=== PATIENT | female | born 1945 | race Caucasian/White ===

== ENCOUNTER 2024-03-09 09:51 | Inpatient (IN) ==
--- NOTE | 2024-03-09 10:12 | Emergency Department Note ---
Impression & Plan Complaint of melena ADMIT ED Provider Note HPI: History obtained from patient. The patient is a 78-year-old female with history of cirrhosis, who presents the emergency department with a chief complaint of melena. Patient states that she had esophageal variceal banding performed on 02/27 with [facility] at the [facility], patient states she seemed to be recovering well until last night when she had some nausea and then had one "black colored" bowel movement. Patient states she probably had 2-3 more overnight into this morning and therefore she came to the ER to be assessed. On arrival here to the ED the patient is hemodynamically stable, she otherwise appears to be in no acute distress. Patient denies any hematemesis. ROS: - Per HPI Differential Diagnosis: Bleeding esophageal varices, upper GI bleed/peptic ulcer disease/gastritis, lower GI bleed, hemorrhoids, colonic mass/tumor, amongst other potential pathologies. *Outpatient medications and allergy history reviewed. PE: General: Alert HEENT: Normocephalic, trachea midline Eyes: Extraocular eye movement is intact, no scleral erythema Pulmonary: Clear to auscultation bilaterally, no wheezing Cardio: Regular rate and rhythm GI: Abdomen is soft to palpation : No suprapubic tenderness MSK: No evidence of trauma or malformation of the extremities, no edema Skin: No evidence of rash Neuro: Alert, no focal deficits Psychiatric: Cooperative INDEPENDENT INTERPRETATIONS: engine monitor: (As interpreted by myself): - An order was placed for continuous cardiac monitoring - Patient was noted to be in sinus rhythm with a rate of 62 EKG: (As interpreted by myself): Rate: 70 Rhythm: Normal sinus rhythm Intervals: QTc 609 ms, otherwise within normal limits ST changes: No ST elevation Time: 1014 Interventions provided in ED: -IV Protonix bolus and drip, IV octreotide Medical Decision Making: IV was established and lab work obtained, patient was placed on secured entrance monitor. Lab work shows no leukocytosis, hemoglobin is stable at 11.4, platelet count is slightly reduced at 126, CMP does not show any evidence of any critical findings, BUN is mildly elevated at 25, creatinine is within normal limits, urinalysis shows 2+ leukocyte esterase without any other obvious evidence of infection. Will send for culture. Patient denies any recent dysuria. CT imaging of the abdomen and pelvis was obtained with IV contrast, this shows no evidence of any critical findings, there is stigmata of portal hypertension but no obvious hemorrhage. I did receive communication via phone call to the department from the office of Dr. Tillman of [facility] gastroenterology, they are concerned the patient may have an ulcer near one of the banding sites. I did discuss these findings with the on-call gastroenterology provider here at [facility] Madhav Medina PA-C who is working with Dr. Byrnes. They are in agreement for consultation and the patient will be admitted to the medicine service. [facility] hospitalist service was consulted for admission, case was discussed with Melissa Manzano PA-C, and the patient was placed for admission in stable condition. Consultants/Discussions held with other healthcare providers: -Gastroenterology, Dr. Byrnes / Madhav Medina PA-C -Hospitalist, Dr. Serra Disposition discussion held by myself with: -Patient Diagnosis: 1. Melena, acute 2. History of esophageal varices, status post recent banding 3. Anemia, acute 4. Elevated BUN, acute Disposition: Admission Ruben Skelton DO Emergency Medicine Past Med/Surg History Problem List (Updated 03/09/24 @ 14:34 by Ruben Skelton DO) Complaint of melena (Acute) Melena Urinary tract infection (Acute) Vomiting (Acute) Social History Smoking Status: Never smoker Preferred Language: Setswana Feels Safe at Home: Yes Allergies Allergies Allergy/AdvReac Type Severity Reaction Status Date / Time latex Allergy Severe Rash Unverified 03/09/24 13:50 Latex, Natural Rubber Allergy Severe Rash Unverified 03/09/24 13:50 Sulfa (Sulfonamide Allergy Severe Hives Unverified 03/09/24 13:50 Antibiotics) Home Meds Home Medications Medication Instructions Recorded Confirmed atorvastatin 20 mg tablet 20 mg PO DAILY 03/09/24 03/09/24 cetirizine 10 mg tablet 10 mg PO DAILY 03/09/24 03/09/24 famotidine 40 mg tablet 40 mg PO BID 03/09/24 03/09/24 ibuprofen 200 mg tablet (Advil) 200 mg PO Q6H PRN Pain 03/09/24 03/09/24 lisinopril 20 mg tablet 20 mg PO DAILY 03/09/24 03/09/24 omeprazole 40 mg capsule,delayed 40 mg PO BID 03/09/24 03/09/24 release Results & Data (ED) Vital Signs Vital Signs - 24 hr 03/09/24 09:56 03/09/24 10:04 03/09/24 10:21 Temperature 36.4 C L Temperature Source Temporal Artery Scan Pulse Rate 66 67 Pulse Rate [Right Brachial] Pulse Rhythm [Right Brachial] Pulse Strength [Right Brachial] Respiratory Rate 18 Respiratory Effort / Characteristics Non-Labored Respiratory Depth Normal Respiratory Pattern Regular Blood Pressure 128/59 L Blood Pressure [Right Arm] Blood Pressure Mean 82 Blood Pressure Mean [Right Arm] Blood Pressure Position [Right Arm] Pulse Oximetry 99 Oxygen Delivery Method Room Air Room Air Sepsis Recent Fever Within 48 Hours No Sepsis New/Unexplained Change in Mental Status N/A Sepsis Action Taken by Nursing No Action Required 03/09/24 11:52 03/09/24 14:19 Temperature Temperature Source Pulse Rate 58 L Pulse Rate [Right Brachial] 59 L Pulse Rhythm [Right Brachial] Regular Pulse Strength [Right Brachial] Normal Respiratory Rate 18 Respiratory Effort / Characteristics Non-Labored Respiratory Depth Normal Respiratory Pattern Regular Blood Pressure Blood Pressure [Right Arm] 120/63 Blood Pressure Mean Blood Pressure Mean [Right Arm] 82 Blood Pressure Position [Right Arm] Sitting Pulse Oximetry 99 Oxygen Delivery Method Room Air Sepsis Recent Fever Within 48 Hours Sepsis New/Unexplained Change in Mental Status Sepsis Action Taken by Nursing Laboratory Data 03/09/24 10:32 03/09/24 10:32 Lab Results 03/09/24 03/09/24 03/09/24 Range/Units 10:30 10:32 13:01 WBC 10.39 (4.8-10.8) K/ul RBC 3.82 L (4.20-5.40) M/uL Hgb 11.4 L (12.0-16.0) g/dl Hct 32.4 L (37.0-47.0) % MCV 84.8 (80.0-100.0) fL MCH 29.8 (25.0-34.0) pg MCHC 35.2 (32.0-36.0) g/dL RDW Std Deviation 48.7 H (36.4-46.3) fL RDW Coeff of Harsh 15.9 H (11.5-14.5) % Plt Count 126 L (130-400) K/uL MPV 9.8 (9.4-12.4) fL Immature Gran % (Auto) 0.4 % Neut % (Auto) 77.1 % Lymph % (Auto) 12.3 % [place] % (Auto) 7.6 % Eos % (Auto) 2.0 % Baso % (Auto) 0.6 % Neut # (Auto) 8.01 H (1.40-6.50) K/uL Lymph # (Auto) 1.28 (1.20-3.40) K/uL [place] # (Auto) 0.79 H (0.11-0.59) K/uL Eos # (Auto) 0.21 (0.00-0.50) K/uL Baso # (Auto) 0.06 (0.00-0.20) K/uL Immature Gran # (Auto) 0.04 (0.01-0.20) K/uL PT 12.5 H (9.0-12.0) Seconds INR 1.2 H (0.9-1.1) Sodium 135 L (136-145) mmol/L Potassium 3.9 (3.5-5.1) mmol/L Chloride 105 (98-107) mmol/L Carbon Dioxide 21 (21-32) mmol/L Anion Gap 9 (3-11) BUN 25 H (6-23) mg/dl Creatinine 1.11 (0.6-1.2) mg/dl Est Cr Clr Drug Dosing 41.0 ml/min Est GFR ( Amer) 55.9 ml/min Est GFR (Non-Af Amer) 48.2 ml/min BUN/Creatinine Ratio 22.5 H (10-20) Glucose 103 H (70-99(Fasting)) mg/dl Calcium 9.4 (8.6-10.3) mg/dl Total Bilirubin 1.9 H (0.2-1.0) mg/dl AST 25 (13-39) U/L ALT 26 (7-52) U/L Alkaline Phosphatase 135 H (34-104) U/L Total Protein 6.3 (6.0-8.3) gm/dl Albumin 3.7 (3.4-5.0) gm/dl Globulin 2.6 (2.5-4.0) gm/dl Albumin/Globulin Ratio 1.4 (0.9-2) Lipase 11 (11-82) U/L Urine Color Yellow Urine Appearance Clear (Clear) Urine pH 7.0 (4.5-7.5) Ur Specific [place] 1.008 (1.000-1.030) Urine Protein Negative (Negative) Urine Glucose (UA) Negative (Negative) Urine Ketones Negative (Negative) Urine Blood Trace H (Negative) Urine Nitrite Negative (Negative) Urine Bilirubin Negative (Negative) Urine Urobilinogen Negative (Negative) Ur Leukocyte Esterase 2+ H (Negative) Urine WBC (Auto) 0-5 (0-5) /hpf Urine RBC (Auto) 0-2 (0-2) /hpf U Hyaline Cast (Auto) 0-2 (0-2) /lpf U Epithel Cells (Auto) 0-2 (0-2) /hpf Urine Bacteria (Auto) None Seen (None Seen) Blood Type O Positive Antibody Screen NEGATIVE Administered Medications Pantoprazole Sodium 40 mg/ (Dextrose) 100 mls @ 20 mls/hr IV Q5H SINDI Stop: 04/08/24 10:29 Last Admin: 03/09/24 10:56 Dose: 8 mg/hr, 20 mls/hr Documented By: REFUGIO Discontinued Medications Sodium Chloride (Nss) 500 mls @ 999 mls/hr IV .Q31M STA Stop: 03/09/24 10:34 Last Infusion: 03/09/24 13:46 Dose: Infused Documented By: Admin: 03/09/24 13:11 Dose: 999 mls/hr Documented By: FREDI Pantoprazole Sodium 80 mg/ (Dextrose) 120 mls @ 480 mls/hr IV NOW ONE Stop: 03/09/24 10:26 Last Infusion: 03/09/24 11:13 Dose: Infused Documented By: Admin: 03/09/24 10:52 Dose: 480 mls/hr Documented By: REFUGIO Octreotide Acetate 50 mcg/ (Syringe) 10 mls @ 3 mls/min IV ONE STA Stop: 03/09/24 10:15 Last Admin: 03/09/24 10:51 Dose: 3 mls/min Documented By: REFUGIO Ioversol (Optiray 320 100ml) 92 ml IV ONCE ONE Stop: 03/09/24 13:03 Last Admin: 03/09/24 13:02 Dose: 92 ml Documented By: REBA Miscellaneous (Stat Iv/Im) 1 each N/A NOW STA Stop: 03/09/24 10:13 Last Admin: 03/09/24 11:14 Dose: Not Given Documented By: FREDI Pantoprazole Sodium (Pantoprazole Bolus/Drip) 1 each IV NOW STA Stop: 03/09/24 10:13 Last Admin: 03/09/24 11:13 Dose: Not Given Documented By: FREDI Imaging Data Radiologist's Impression: Abdomen/Pelvis CT 03/09/24 10:12 CT abd pelvis IV con only CLINICAL HISTORY: abd pain, GIB TECHNIQUE: Helical axial images of the abdomen and pelvis were obtained and displayed. Automated dose lowering techniques and/or adjustment according to patient size were utilized for this exam. This exam was performed with intravenous contrast. CT DOSE: 970.44 mGy.cm COMPARISON: Comparison is made to abdomen radiograph 05/02/2014 FINDINGS: Lower chest: Bibasilar atelectasis versus scarring is seen. Liver: Nodular contour of the liver is seen compatible with cirrhosis. Gallbladder and biliary tree: No calcified gallstones. Normal caliber wall. No intra- or extrahepatic biliary ductal dilation. Pancreas: Unremarkable, no focal lesions. Spleen: Splenomegaly is noted, the spleen measures 15.6 mm. Adrenals: Unremarkable. Kidneys and ureters: Renal cysts are seen. Bladder: Unremarkable. Reproductive organs: Unremarkable. Bowel: Diverticulosis is seen without evidence of diverticulitis. Patient is status post appendectomy. There is a small hiatal hernia. Lymph nodes Retroperitoneal: Subcentimeter lymph nodes are noted. Pelvic: Unremarkable. Mesenteric: Unremarkable. Peritoneum: Ascites is seen. Vessels: Atherosclerotic calcifications are seen. Perigastric and paraesophageal varices are seen. Abdominal wall: Unremarkable. Bones: Degenerative changes in the visualized spine. IMPRESSION: 1. No acute abnormalities are seen to suggest etiology of gastrointestinal bleed. 2. Cirrhosis and stigmata of portal hypertension. ACT 112: Negative or not required by law. Electronically signed by: Truong Tinajero M.D. 03/09/2024 2:25 PM Discharge Plan Visit Data Chief Complaint: Illness ED Provider: Ruben Skelton Discharge Problem: Complaint of melena Forms Stand Alone Forms: My [facility] Prescriptions Prescriptions: No Action atorvastatin 20 mg Tablet 20 mg PO DAILY cetirizine 10 mg tablet 10 mg PO DAILY lisinopril 20 mg tablet 20 mg PO DAILY famotidine 40 mg tablet 40 mg PO BID omeprazole 40 mg capsule,delayed release(DR/EC) 40 mg PO BID ibuprofen [Advil] 200 mg Tablet 200 mg PO Q6H PRN (Reason: Pain) Referrals Referrals: Clinton Ann PA-C [Primary Care Provider] -
[2024-03-09 10:45] LABS: Basophils # (auto) 0.06 K/uL (0.00-0.20); Basophils % (auto) 0.6 %; Eosinophils # (auto) 0.21 K/uL (0.00-0.50); Hematocrit (blood only) 32.4 % (37.0-47.0); Hemoglobin 11.4 g/dl (12.0-16.0); Immature Granulocytes # (auto) 0.04 K/uL (0.01-0.20); Immature Granulocytes % (auto) 0.4 %; Lymphocytes # (auto) 1.28 K/uL (1.20-3.40); Lymphocytes % (auto) 12.3 %; Mean Corpuscular Hemoglobin 29.8 pg (25.0-34.0); Mean Corpuscular Hgb Conc 35.2 g/dL (32.0-36.0); Mean Corpuscular Volume 84.8 fL (80.0-100.0); Mean Platelet Volume 9.8 fL (9.4-12.4); Monocytes # (auto) 0.79 K/uL (0.11-0.59); Monocytes % (auto) 7.6 %; Neutrophils # (auto) 8.01 K/uL (1.40-6.50); Neutrophils % (auto) 77.1 %; Platelet Count 126 K/uL (130-400); RDW Coefficient of Variation 15.9 % (11.5-14.5); RDW Standard Deviation 48.7 fL (36.4-46.3); Red Blood Count 3.82 M/uL (4.20-5.40); White Blood Count 10.39 K/ul (4.8-10.8)
[2024-03-09] MEDS: OCTREOTIDE ACETATE 50 MCG in SYRINGE 9.5 ML IV STA (10:51)
[2024-03-09] MEDS: PANTOprazole 80 MG in DEXTROSE 5% 100 ML IV ONE (10:52)
[2024-03-09 10:55] LABS: INR 1.2 (0.9-1.1); Prothrombin Time 12.5 Seconds (9.0-12.0)
[2024-03-09] MEDS: PANTOprazole 40 MG in DEXTROSE 5% MINI-B 100 ML IV SCH (10:56)
[2024-03-09 10:59] LABS: Albumin Level 3.7 gm/dl (3.4-5.0); Bilirubin,Total 1.9 mg/dl (0.2-1.0); Calcium 9.4 mg/dl (8.6-10.3); Potassium 3.9 mmol/L (3.5-5.1)
[2024-03-09 11:05] LABS: Albumin Globulin Ratio 1.4 (0.9-2); BUN Creatinine Ratio 22.5 (10-20); Est GFR (African American) 55.9 ml/min; Est GFR (Non-African American) 48.2 ml/min; Globulin 2.6 gm/dl (2.5-4.0); Total Protein 6.3 gm/dl (6.0-8.3)
[2024-03-09] MEDS: PANTOPRAZOLE BOLUS/DRIP IV STA (11:13)
[2024-03-09] MEDS: STAT IV/IM STA (11:14)
--- OUTSIDE RECORDS SUMMARY | 2024-03-09 12:52 | External Medical Summary | Summary of Care ---
Author Name Unknown Organization [facility] Address [address] [place] [address] Phone [phone] Care Team Providers Care Odd Job Worker Name Role Phone Clinton Ann PA-C Primary Care Provide r Reason for Visit * Reason Onset Date Comments Appointment 03/01/2024 Encounter Details Date Type Department Care Team (Late st Contact Info) Description 03/01/2024 Telephone OR [facility], Operating Room [facility] [address] [facility] [place] [address] Nia Damico, GLORIA Appointment Allergies Active Allergy Reactions Criticality Noted Date Comments Other Allergy (See Comments) Rash High 024 Jergens -ultra healing lotion- severe contact dermatitis- had to be put on steroids Sulfa Antibiotics Hives 12/01/2016 documented as of this encounter (statuses as of 03/01/2024) Medications Medication Sig Dispensed Refills Start Date End Date Status CLARITIN 10 MG OR TABSIndications:as needed Take by mouth. As needed 30 6 03/06/2004 Active lisinopril (PRINIVIL) 10 MG Tablet Take 2 Tablets by mouth in the morning. Active LORazepam (ATIVAN) 1 MG Tablet Take 1 Tablet by mouth every 6 hours as needed. Active Atorvastatin Calcium 20 MG Oral Tablet (Lipitor) Take 1 Tablet by mouth in the morning. Active Meloxicam 7.5 MG Oral Tablet (Mobic)Indications: as needed Take 1 Tablet by mouth in the morning. Active Centrum Silver 50+Women Oral Tablet Take by mouth daily. Active Vitamin C 500 MG Oral Tablet Chewable Take 2 Tablets by mouth in the morning. Active Vitamin D3 Super Strength 50 MCG (2000 UT) Oral Capsule (Cholecalciferol) Take 4 Capsules by mouth in the morning. Active Caltrate 600+D Plus Minerals 600-800 MG-UNIT Oral Tablet Take 2 Tablets by mouth in the morning. Active Vitamin B 12 100 MCG Oral Lozenge Take 2 Lozenges by mouth in the morning. Active Azithromycin 250 MG Oral TabletIndications:2 tablets on 12-03-22 1 tablet x 3 days last dose 12-07-22 Take 1 Tablet by mouth in the morning. Active Oxybutynin Chloride ER 10 MG Oral Tablet Extended Release 24 Hour (Ditropan XL)Indications:as needed Take 1 Tablet by mouth in the morning. Take 1 tablet at night. Active Fluticasone Propionate 50 MCG/ACT Nasal Suspension (Flonase) Administer into nostril as needed. 12/16/2022 Active Famotidine 40 MG Oral Tablet (Pepcid) Take 1 Tablet by mouth in the morning and 1 Tablet before bedtime. Active Cetirizine HCl 10 MG Oral Capsule Take 1 Capsule by mouth in the morning. Active diphenhydrAMINE HCl 25 MG Oral Capsule (Benadryl Allergy) Take 1 Capsule by mouth every 6 hours as needed for Itching. Active Triamcinolone Acetonide 0.1 % External Cream (Aristocort) Apply topically to affected area daily. Apply to arms for rash Active methylPREDNISolone 4 MG Oral Tablet Therapy Pack (Medrol Dosepack) Take 1 Tablet by mouth in the morning. follow package directions. Active Omeprazole 40 MG Oral Capsule Delayed Release (PriLOSEC)Indicatio ns:Cirrhosis of liver without ascites, unspecified hepatic cirrhosis type (HCC) Take 1 Capsule by mouth 2 times a day with morning and evening meals. 60 Capsule 1 03/01/2024 Active documented as of this encounter (statuses as of 03/01/2024) Active Problems Problem Noted Date Diagnosed Date HTN, goal to be determined 03/06/2004 NONALLERGIC RHINITIS 03/06/2004 Wheezing 03/06/2004 documented as of this encounter (statuses as of 03/01/2024) Social History Tobacco Use Types Packs/Day Years Used Date Smoking Tobacco: Never Smokeless Tobacco: Never Comments:no passive smoke at home Alcohol Use Standard Drinks/Week Comments No 0 (1 standard drink = 0.6 oz pur e alcohol) Utilities Answer Date Recorded Do you have trouble paying y our heating, water, or electric bill? (Adult - for ages 18 years and over) Not on file 12/21/2023 Is your family able to pay t he heat, water, or electric bill? (Household - for ages 0-17 years) Not on file 12/21/2023 Does your family have access to good internet? (Household - for ages 0-17 years) Not on file 12/21/2023 Social Connections Answer Date Recorded How often do you feel lonely or isolated from those around you? (Adult - for ages 18 years and over) Not on file 12/21/2023 Sex and Gender Information Value Date Recorded Sex Assigned at Not on file Gender Identity Not on file Sexual Orientation Not on file Job Start Date Occupation Industry Not on file Not on file Not on file documented as of this encounter Miscellaneous Notes * Telephone Encounter - Jeanne Whitaker OSA - 03/01/2024 11:49 AM EDT Jennifer, please advise * Telephone Encounter - Nia Damico RN - 03/01/2024 10:27 AM EDT Patient needs repeat EGD in 4-6 weeks for re-treatment. Patient is not a candidate for [facility] and will need scheduled at [facility]. Please call patient to schedule. Thank you! documented in this encounter Plan of Treatment Scheduled Procedures Name Priority Associated Diagnoses Date/Ti me ESOPHAGOGASTRODUODENOSCOPY ( EGD), FLEXIBLE, TRANSORAL, DIAGNOSTIC Recall Abnormal LFTs Hepatic fibrosis 03/01/2024 9:57 AM EDT COLONOSCOPY FLEXIBLE PROXIMA L DIAGNOSTIC Recall History of colon polyps Health Maintenance Due Date Last Done Comments DXA Scan 1945 Depression Screening 1959 Albumin/Creatinine Ratio 1965 DTap/Tdap Vaccines (1 - Tdap) 1966 Zoster Vaccines (2 of 3) 08/13/2020 06/18/2020 COVID-19 Vaccine (2022-24 season) 2023 Influenza Vaccine (FLU shot) (#1) 2024 04/19/2023, 04/07/2022, 04/15/2021, Additional history exists GFR 08/06/2024 08/06/2023, 08/2022, 01/19/2023, Additional history exists Colonoscopy 12/08/2027 12/07/2022, 11/2022, 12/09/2016, Additional history exists Pneumococcal Vaccine: 65+ Years Completed 09/29/2018, 08/10/2017 RETIRED - COLONOSCOPY-EVERY 5 YRS AGES 18-100 Discontinued 12/07/2022, 12/07/2022, 12/09/2016, Additional history exists HPV (Gardasil) Vaccine Aged Out No lo nger eligible based on patient's age to complete this topic Hepatitis B Vaccine Aged Out No longe r eligible based on patient's age to complete this topic MENINGOCOCCAL (MENACTRA/MENVEO) Aged Out No longer eligible based on patient's age to complete this topic documented as of this encounter Medical Devices Not on filedocumented as of this encounter Care Teams Odd Job Worker Relationship Specialty Start Date End Date Clinton Ann PA-C [address] [facility] [place] [address] PCP - General Physician Digital Account Coordinator 02/05/22 documented as of this encounter
--- OUTSIDE RECORDS SUMMARY | 2024-03-09 12:52 | External Medical Summary | Summary of Care ---
Author Name Unknown Organization [facility] Address [address] [facility] [place] [address] Phone [phone] Care Team Providers Care Loss Prevention Manager Name Role Phone Clinton Ann PA-C Primary Care Provide r Reason for Visit * Reason Onset Date Comments Advice 03/07/2024 Encounter Details Date Type Department Care Team (Late st Contact Info) Description 03/07/2024 Telephone Gastroenterology, [facility] [address] [place] [address] Yakelin Tillman DO [address] [place] [address] Advice Allergies Active Allergy Reactions Criticality Noted Date Comments Other Allergy (See Comments) Rash High 024 Jergens -ultra healing lotion- severe contact dermatitis- had to be put on steroids Sulfa Antibiotics Hives 12/01/2016 documented as of this encounter (statuses as of 03/08/2024) Medications Medication Sig Dispensed Refills Start Date [...] as of this encounter (statuses as of 03/08/2024) Active Problems Problem Noted Date Diagnosed Date HTN, goal to be determined 03/06/2004 NONALLERGIC RHINITIS 03/06/2004 Wheezing 03/06/2004 documented as of this encounter (statuses as of 03/08/2024) Social History Tobacco Use Types Packs/Day Years [...] encounter Miscellaneous Notes * Telephone Encounter - Sandi Vargas RN - 03/08/2024 9:01 AM EDT FYI Schedulers Per TE 03/01/24 Pt needs to have EGD at [facility] Nia remy, RN 03/01/24 10:30 AM Note Patient needs repeat EGD in 4-6 weeks for re-treatment. Patient is not a candidate for [facility] and will need scheduled at [facility]. Please call patient to schedule. Thank you! See that TE, was sent to Endo for a place to add * Telephone Encounter - Sandi Vargas RN - 03/08/2024 8:59 AM EDT Images from the original note were not included. LM for pt to call. If she calls back please let her know labs are ordered by Dr Tillman and she can have them done at any [facility] Yakelin Tillman, DO You; [facility] Gastro Nurse Pool/Class; [facility] Gastro SchedulingPool/Class22 hours ago (10:49 AM) I have ordered MELD labs to be done. I don't think anyone would of mentioned anything about her labs being low since she hasn't had any since August so I'm not sure what would be low. She does needa repeat EGD with banding arranged. Yakelin Tillman, * Telephone Encounter - Avril aCll OSA - 03/07/2024 10:51 AM EDT OV and EGD are scheduled TEREZA Em 03/07/2024 10:51 AM * Telephone Encounter - Sandi Vargas RN - 03/07/2024 9:46 AM EDT PT calling to schedule OV and EGD with banding. Pt made aware EGD schedulers will be reaching out to her. Schedulers, pt missed OV with Dr Tillman in Aug and needs seen, please call to schedule, you wereunavailable when I was on with her. Dr Tillman, pt states she just feels wiped out since EGD with banding. States she heard talk during her procedure that some of her labs were low. No labs since Aug. Do you want any labs ordered? Pt states no more vomiting, no melena/BRB, no pain or n/v. documented in this encounter Plan of Treatment Upcoming Encounters Date Type Department Care Team (Latest Contact Info) Description 04/12/2024 3:00 PM EDT Office Visit Hepatology, [facility] [address] [place] [address] Yakelin Tillman, [address] [place] [address] 04/27/2024 9:45 AM EDT Hospital Encounter ENDO [facility], Endoscopy Room [facility] [address] [place], [place] [id number] Yakelin Tillman, DO [address] [place] [address] 04/27/2024 9:45 AM EDT - 04/27/2024 10:15 AM EDT Surgery ENDO [facility], Endoscopy Room [facility] [address] [place] [address] Yakelin Tillman, [address] [place] [address] ESOPHAGOGASTRODUODENOSCOPY (EGD), FLEXIBLE, TRANSORAL, DIAGNOSTIC Scheduled Procedures Name Priority Associated Diagnoses Date/Ti me ESOPHAGOGASTRODUODENOSCOPY ( EGD), FLEXIBLE, TRANSORAL, DIAGNOSTIC Recall Abnormal LFTs Hepatic fibrosis 04/27/2024 9:45 AM EDT COLONOSCOPY FLEXIBLE PROXIMA L DIAGNOSTIC Recall History of colon polyps Health Maintenance Due Date Last Done Comments DXA Scan 1947 Depression Screening 1959 Albumin/Creatinine Ratio 1965 DTap/Tdap Vaccines (1 - Tdap) 1966 Zoster Vaccines (2 of 3) 08/13/2020 06/18/2020 COVID-19 Vaccine (1 - season) 2024 Influenza Vaccine (FLU shot) (#1) 2024 04/19/2023, [...] filedocumented as of this encounter Care Teams Loss Prevention Manager Relationship Specialty Start Date End Date Clinton Ann PA-C [address] [place], [place] [address] [id number] PCP - General Physician Flow Machine Operator 02/05/22 documented as of this encounter
--- OUTSIDE RECORDS SUMMARY | 2024-03-09 12:52 | External Medical Summary | Summary of Care ---
Author Name Unknown Organization [facility] Address [address] [facility] [place] [address] Phone [phone] Care Team Providers Care It Analyst Name Role Phone Clinton Ann PA-C Primary Care Provide r Reason for Visit * Reason Onset Date Comments Advice 03/07/2024 Encounter Details Date Type Department Care Team (Late st Contact Info) Description 03/07/2024 Telephone Gastroenterology, [facility] [address] [place] [address] Yakelin Tillman DO [address] [place] [address] Advice Allergies Active Allergy Reactions Criticality Noted [...] Telephone Encounter - Jeanne Whitaker OSA - 03/08/2024 9:32 AM EDT This was diallo'd at [facility] but needs [facility] OR. Jennifer please advise. * Telephone Encounter - Jeanne Whitaker OSA - 03/08/2024 9:32 AM EDT Nia Damico RN 03/01/24 10:30 AM Note Patient needs repeat EGD in 4-6 weeks for re-treatment. Patient is not a candidate for [facility] and will need scheduled at [facility]. Please call patient to schedule. Thank you! 03/01/24 10:30 AM Nia Damico RN routed this conversation to [facility] Scheduling/Referral Pool/Class Yakelin Tillman, DO Me AB 03/01/24 11:49 AM Note Jennifer, please advise * Telephone Encounter - Sandi Vargas RN - 03/08/2024 9:01 AM EDT FYI Schedulers Per TE 03/01/24 Pt needs to have EGD at [facility] Nia remy, GLORIA 03/01/24 10:30 AM Note Patient needs repeat EGD in 4-6 weeks for re-treatment. Patient is not a candidate for [facility] and will need scheduled at [facility]. Please call patient to schedule. Thank you! [...] she can have them done at any [facility] Yakelin Tillman, DO You; [facility] hours ago (10:49 AM) I have ordered MELD labs to be done. I don't think anyone would of mentioned anything about her labs being low since she hasn't had any since August so I'm not sure what would be low. She does needa repeat EGD with banding arranged. Yakelin Tillman, * Telephone Encounter - Avril Call OSA - 03/07/2024 10:51 AM EDT OV [...] 04/12/2024 3:00 PM EDT Office Visit Hepatology, [facility] [address] [place] [address] Yakelin Tillman DO [address] [place] [address] 04/27/2024 9:45 AM EDT Hospital Encounter ENDO O[facility], Endoscopy Room [facility] [address] [place] [address] [phone] Yakelin Tillman DO [address] [place] [address] 04/27/2024 9:45 AM EDT - 04/27/2024 10:15 AM EDT Surgery ENDO [facility], Endoscopy Room [facility] [address] [place] [phone] Yakelin Tillman DO [address] [place] [address] ESOPHAGOGASTRODUODENOSCOPY (EGD), FLEXIBLE, TRANSORAL, DIAGNOSTIC Scheduled Procedures [...] filedocumented as of this encounter Care Teams It Analyst Relationship Specialty Start Date End Date Clinton Ann PA-C [address] [facility] [place] [address] PCP - General Physician Exhaust Emissions Automotive Technician 02/05/22 documented as of this encounter
--- OUTSIDE RECORDS SUMMARY | 2024-03-09 12:52 | External Medical Summary | Summary of Care ---
Author Name Unknown Organization [facility] Address [address] [facility] [place] [address] Phone [phone] Care Team Providers Care Scouring Pads Supervisor Name Role Phone Clinton Ann PA-C Primary Care Provide r Reason for Visit * Reason Onset Date Comments Advice 03/01/2024 Vomitting blood after a procedure Encounter Details Date Type Department Care Team (Late st Contact Info) Description 03/01/2024 Telephone Gastroenterology, [facility] [address] [place] [address] Yakelin Tillman DO [address] [place] [address] Advice (Vomitting blood after a procedure) Allergies Active Allergy Reactions Criticality Noted Date Comments Other Allergy (See Comments) Rash High 024 Jergens -ultra healing lotion- severe contact dermatitis- had to be put on steroids Sulfa Antibiotics Hives 12/01/2016 documented as of this encounter (statuses as of 03/02/2024) Medications Medication Sig Dispensed Refills Start Date [...] as of this encounter (statuses as of 03/02/2024) Active Problems Problem Noted Date Diagnosed Date HTN, goal to be determined 03/06/2004 NONALLERGIC RHINITIS 03/06/2004 Wheezing 03/06/2004 documented as of this encounter (statuses as of 03/02/2024) Social History Tobacco Use Types Packs/Day Years [...] encounter Miscellaneous Notes * Telephone Encounter - Avril Call OSA - 03/02/2024 8:57 AM EDT Received fax stating : Pt had endoscopy procedure today and she feels bloated and vomited a small amount of brownish mucus. Please advise TEREZA Em 03/02/2024 8:59 AM * Telephone Encounter - Eleanor Blakely OSA - 03/01/2024 4:32 PM EDT What is the reason for call? Patient had a endoscopy and is vomitted blood. Wants to know if she should be concerned. What Clinic is the patient trying to reach? [facility]- Is the clinic open? No- Gastroenterology- Clinic [facility]- transfer to the [facility] service at [phone] documented in this encounter Plan of Treatment Scheduled Procedures Name Priority Associated Diagnoses Date/Ti me COLONOSCOPY FLEXIBLE PROXIMAL DIAGNOSTIC Recall History of colon polyps Health Maintenance Due Date Last Done Comments DXA Scan 1947 Depression Screening 1959 Albumin/Creatinine Ratio 1965 DTap/Tdap Vaccines (1 - Tdap) 1966 Zoster Vaccines (2 of 3) 08/13/2020 06/18/2020 COVID-19 Vaccine (1 - 2022- season) 2023 Influenza Vaccine (FLU shot) (#1) [...] filedocumented as of this encounter Care Teams Scouring Pads Supervisor Relationship Specialty Start Date End Date [facility] [place] [address] PCP - General Physician Logistics Engineering Manager 02/05/22 documented as of this encounter
--- OUTSIDE RECORDS SUMMARY | 2024-03-09 12:52 | External Medical Summary | Summary of Care ---
Author Name Unknown Organization [facility] Address [address] [facility] [place] [address] Phone [phone] Care Team Providers Care Fisher Oyster Name Role Phone Clinton Ann PA-C Primary Care Provide r Reason for Visit * Reason Onset Date Comments Advice 03/07/2024 Encounter Details Date Type Department Care Team (Late st Contact Info) Description 03/07/2024 Telephone Gastroenterology, [facility] [address] [place] [address] Yakelin Tillman DO [address] [place] [address] Advice Allergies Active Allergy Reactions Criticality Noted Date Comments Other Allergy (See Comments) Rash High 024 Jergens -ultra healing lotion- severe contact dermatitis- had to be put on steroids Sulfa Antibiotics Hives 12/01/2016 documented as of this encounter (statuses as of 03/07/2024) Medications Medication Sig Dispensed Refills Start Date [...] as of this encounter (statuses as of 03/07/2024) Active Problems Problem Noted Date Diagnosed Date HTN, goal to be determined 03/06/2004 NONALLERGIC RHINITIS 03/06/2004 Wheezing 03/06/2004 documented as of this encounter (statuses as of 03/07/2024) Social History Tobacco Use Types Packs/Day Years [...] 04/12/2024 3:00 PM EDT Office Visit Hepatology, [facility] [address] [place] [address] Yakelin Tillman DO [address] [place] [address] 04/27/2024 9:45 AM EDT Hospital Encounter ENDO [facility], Endoscopy Room [facility] [address] [place] [phone] Yakelin Tillman DO [address] [place] [address] 04/27/2024 9:45 AM EDT - 04/27/2024 10:15 AM EDT Surgery ENDO [facility], Endoscopy Room [facility] [address] [place] [address] Yakelin Tillman DO [address] [place] [address] ESOPHAGOGASTRODUODENOSCOPY (EGD), FLEXIBLE, TRANSORAL, DIAGNOSTIC Scheduled Procedures [...] 06/18/2020 COVID-19 Vaccine (1 - 2022- season) 2024 Influenza Vaccine (FLU shot) (#1) [...] filedocumented as of this encounter Care Teams Fisher Oyster Relationship Specialty Start Date End Date [facility] [place] [address] PCP - General Physician Ammonia Still Operator 02/05/22 documented as of this encounter
--- OUTSIDE RECORDS SUMMARY | 2024-03-09 12:52 | External Medical Summary | Summary of Care ---
Author Name Unknown Organization [facility] Address [address] [facility] [place] [address] Phone [phone] Care Team Providers Care Account Collector Name Role Phone Clinton Ann PA-C Primary Care Provide r Reason for Visit * Reason Onset Date Comments Advice 03/01/2024 Vomitting blood after a procedure Encounter Details Date Type Department Care Team (Late st Contact Info) Description 03/01/2024 Telephone Gastroenterology, [facility] [address] [place] [address] Yakelin Tillman DO [address] [place] [address] Advice (Vomitting blood after a procedure) Allergies [...] encounter Miscellaneous Notes * Telephone Encounter - Mona Jackson LPN - 03/02/2024 9:57 AM EDT Returned Amara's call. She stated that she feels much better this morning. Vomited again over night. All liquid. No bright red blood. Brownish, but she drink tea last night. Advised to go to ED if starts vomiting BRB. * Telephone Encounter - Avril Call OSA [...] Is the clinic open? No- Gastroenterology- Clinic [facility]- transfer to the answering service at [phone] documented in this encounter Plan of Treatment [...] filedocumented as of this encounter Care Teams Account Collector Relationship Specialty Start Date End Date Clinton Ann PA-C [address] [place] [id number] PCP - General Physician Senior Ruby Developer 02/05/22 documented as of this encounter
--- OUTSIDE RECORDS SUMMARY | 2024-03-09 12:52 | External Medical Summary | Summary of Care ---
Author Name Unknown Organization [facility] Address [address] [facility] [place] [address] Phone [phone] Care Team Providers Care Cuff Matcher Name Role Phone Clinton Ann PA-C Primary Care Provide r Reason for Visit * Reason Onset Date Comments Advice 03/07/2024 Encounter Details Date Type Department Care Team (Late st Contact Info) Description 03/07/2024 Telephone Gastroenterology, [facility] [address] [place] [address] Yakelin Tillman DO [address] [place] [address] Advice Allergies Active Allergy Reactions Criticality Noted [...] encounter Miscellaneous Notes * Telephone Encounter - Martina Santoyo OSA - 03/08/2024 4:01 PM EDT Patient called just asking if the date she had scheduled would be a problem if its supposed to be in 4-6 weeks. I told her that it was being looked into and that she would receive a call. * Telephone Encounter - Jeanne Whitaker OSA - 03/08/2024 9:32 AM EDT This was diallo'd at [facility] but needs [facility] OR. Jennifer please advise. * Telephone Encounter - Jeanne Whitaker OSA - 03/08/2024 9:32 AM EDT Nia Damico, RN 03/01/24 10:30 AM Note Patient needs repeat EGD in 4-6 weeks for re-treatment. Patient is not a candidate for [facility] and will need scheduled at [facility]. Please call patient to schedule. Thank you! 03/01/24 10:30 AM Nia Damico, RN routed this conversation to [facility] Scheduling/Referral Pool/Class Yakelin Tillman, DO Me AB 03/01/24 11:49 AM Note Jennifer, please advise * Telephone Encounter - Sandi Vargas RN - 03/08/2024 9:01 AM EDT FYI Schedulers Per TE 03/01/24 Pt needs to have EGD at [facility] Nia remy RN 03/01/24 10:30 AM Note Patient needs repeat EGD in 4-6 weeks for re-treatment. Patient is not a candidate for [facility] she can have them done at any [facility] Yakelin Tillman, DO You; [facility] [...] repeat EGD with banding arranged. Yakelin Tillman, DO * Telephone Encounter - Avril Call OSA [...] PM EDT Office Visit Hepatology, [facility] [address] [place] [address] Yakelin Tillman DO [address] [place] [address] 04/27/2024 9:45 AM EDT Hospital Encounter ENDO [facility], Endoscopy Room [facility] [address] [place] [phone] Yakelin Tillman DO [address] [place] [address] 04/27/2024 9:45 AM EDT - 04/27/2024 10:15 AM EDT Surgery ENDO [facility], Endoscopy Room [facility] [address] [place] [phone] Yakelin Tillman, [address] [place] [address] ESOPHAGOGASTRODUODENOSCOPY (EGD), FLEXIBLE, TRANSORAL, DIAGNOSTIC Scheduled Procedures [...] filedocumented as of this encounter Care Teams Cuff Matcher Relationship Specialty Start Date End Date Clinton Ann PA-C [address] [place] [address] [place] [address] PCP - General Physician Brand Attendant 02/05/22 documented as of this encounter
--- OUTSIDE RECORDS SUMMARY | 2024-03-09 12:52 | External Medical Summary | Summary of Care ---
Author Name Unknown Organization [facility] Address [address] [facility] [place] [address] Phone [phone] Care Team Providers Care Steam Train Driver Name Role Phone Clinton Ann PA-C Primary Care Provide r Reason for Visit * Auth/Cert Specialty Diagnoses / Procedures Referred By Benjamin t Referred To Contact Diagnoses Abnormal LFTs Hepatic fibrosis Abnormal LFTs [R79.89] Hepatic fibrosis [K74.00] Procedures EGD, FLEXIBLE, DIAGNOSTIC ESOPHAGOGASTRODUODENOSCOPY (EGD), FLEXIBLE, TRANSORAL, DIAGNOSTIC Referral ID Status Reason Start Date Expiration Date Visits Re quested Visits Authorized [id number] Encounter Details Date Type Department Care Team (Latest Contact Info) Description 03/01/2024 8:31 AM EDT - 03/01/2024 10:53 AM EDT Hospital Encounter [facility], Endoscopy Room [facility] [address] [place] [phone] Yakelin Tillman DO [address] [place] [address] Upper GI Endoscopy Discharge Disposition: Home - Self Care Allergies Active Allergy Reactions Criticality Noted Date Comments Other Allergy (See Comments) Rash High 024 Jergens -ultra healing lotion- severe contact dermatitis- had to be put on steroids Sulfa Antibiotics Hives 12/01/2016 documented as of this encounter (statuses as of 03/01/2024) Medications Medication Sig Dispensed Refills Start Date End Date Status CLARITIN 10 MG OR TABSIndications:a s needed Take by mouth. As needed 30 6 03/06/2004 Active lisinopril (PRINIVIL) 10 MG Tablet Take 2 Tablets by mouth in the morning. Active LORazepam (ATIVAN) 1 MG Tablet Take 1 Tablet by mouth every 6 hours as needed. Active Atorvastatin Calcium 20 MG Oral Tablet (Lipitor) Take 1 Tablet by mouth in the morning. Active Meloxicam 7.5 MG Oral Tablet (Mobic)Indication s:as needed Take 1 Tablet by mouth in [...] the morning. Active Azithromycin 250 MG Oral TabletIndications :2 tablets on 12-03-22 1 tablet x 3 [...] daily. Apply to arms for rash Active methylPREDNISolon e 4 MG Oral Tablet Therapy Pack (Medrol Dosepack) Take 1 Tablet by mouth in the morning. follow package directions. Active Omeprazole 20 MG Oral Capsule Delayed Release Take 1 Capsule by mouth in the morning. 03/01/2024 Discontinued documented as of this encounter (statuses as [...] on file documented as of this encounter Last Filed Vital Signs Vital Sign Reading Time Taken Comments Blood Pressure 124/55 03/01/2024 10:36 AM EDT Pulse 68 03/01/2024 10:36 AM EDT Temperature 36.1 C (97 F) 03/01/2024 10:36 AM EDT Respiratory Rate 18 03/01/2024 10:36 AM EDT Oxygen Saturation 99% 03/01/2024 10:36 AM EDT Inhaled Oxygen Concentration - - Weight 72.6 kg (160 lb) 03/01/2024 9:10 AM EDT Height 160 cm (5' 3") 03/01/2024 9:10 AM EDT Body Mass Index 28.34 03/01/2024 9:10 AM EDT documented in this encounter H&P Notes * Yakelin Tillman DO - 03/01/2024 9:22 AM EDT Endoscopy Pre-Procedure Assessment Name: Amara Stoll Date: 03/01/2024 Time: 9:22 AM Procedure: Upper GI Endoscopy; with Indication(s) of variceal surveillance with potential banding Endoscopy Pre-Procedure Assessment: Prior to the procedure, the patient was identified. The patient's history, medications and allergies were reviewed as per the Anesthesia Assessment. The patient is competent. The risks and benefits of the proposed procedure and the planned sedation were discussed with the patient. All questions were answered and informed consent for the procedure was obtained. This patient has undergone a preprocedural evaluation. A determination has been made to proceed with the planned procedure under [facility] procedural guidelines and the [facility] Non-Emergent, Elective Medical Services and Treatment Recommendations (published on 10-10-19). The community and hospital prevalence of COVID-19 has been discussed as well as this patient's specific risks associated with SARS-CoV-19 infection. Based upon the clinical acuity and patient-specific care considerations, this procedure is deemed a Tier II - Intermediate acuity treatment or service with either progression or the threat of progressive disease related to the delay in treatment. Not providing the service has the potential for increasing morbidity or mortality. Pulse 63 | Temp 36.5 C (97.7 F) (Tympanic) | Resp 16 | Ht 1.6 m (5' 3") | Wt 72.6 kg (160 lb) |SpO2 100% | BMI 28.34 kg/m | BSA 1.8 m Prior to Admission medications Medication Sig Last Dose Discont. Cetirizine HCl 10 MG Oral Capsule Take 1 Capsule by mouth in the morning. 02/29/2024 Famotidine 40 MG Oral Tablet (Pepcid) Take 1 Tablet by mouth in the morning and 1 Tablet before bedtime. 02/29/2024 Triamcinolone Acetonide 0.1 % External Cream (Aristocort) Apply topically to affected area daily. Apply to arms for rash Past Week Vitamin B 12 100 MCG Oral Lozenge Take 2 Lozenges by mouth in the morning. 02/29/2024 Atorvastatin Calcium 20 MG Oral Tablet (Lipitor) Take 1 Tablet by mouth in the morning. 02/29/2024 Caltrate 600+D Plus Minerals 600-800 MG-UNIT Oral Tablet Take 2 Tablets by mouth in the morning. 02/29/2024 Centrum Silver 50+Women Oral Tablet Take by mouth daily. 02/29/2024 Vitamin C 500 MG Oral Tablet Chewable Take 2 Tablets by mouth in the morning. Past Week Vitamin D3 Super Strength 50 MCG (2000 UT) Oral Capsule (Cholecalciferol) Take 4 Capsules by mouth in the morning. Past Week lisinopril (PRINIVIL) 10 MG Tablet Take 2 Tablets by mouth in the morning. 02/29/2024 CLARITIN 10 MG OR TABS Take by mouth. As needed Past Month methylPREDNISolone 4 MG Oral Tablet Therapy Pack (Medrol Dosepack) Take 1 Tablet by mouth in the morning. follow package directions. Patient not taking: Reported on 03/01/2024 Not Taking diphenhydrAMINE HCl 25 MG Oral Capsule (Benadryl Allergy) Take 1 Capsule by mouth every 6 hours as needed for Itching. Over 30 Days Fluticasone Propionate 50 MCG/ACT Nasal Suspension (Flonase) Administer into nostril as needed. Patient not taking: Reported on 02/22/2024 Not Taking Oxybutynin Chloride ER 10 MG Oral Tablet Extended Release 24 Hour (Ditropan XL) Take 1 Tablet by mouth in the morning. Take 1 tablet at night. Patient not taking: Reported on 02/22/2024 Not Taking Azithromycin 250 MG Oral Tablet Take 1 Tablet by mouth in the morning. Meloxicam 7.5 MG Oral Tablet (Mobic) Take 1 Tablet by mouth in the morning. Patient not taking: Reported on 02/22/2024 Not Taking LORazepam (ATIVAN) 1 MG Tablet Take 1 Tablet by mouth every 6 hours as needed. Patient not taking: Reported on 02/22/2024 Not Taking Omeprazole 20 MG Oral Capsule Delayed Release Take 1 Capsule by mouth in the morning. Patient not taking: Reported on 02/22/2024 Not Taking Review of patient's allergies indicates: Allergen Reactions Other Allergy (See Comments) Rash Jergens -ultra healing lotion- severe contact dermatitis- had to be put on steroids Sulfa Antibiotics Hives Physical Exam: Mental Status Examination: alert and oriented. General: nad, calm Airway Examination: normal oropharyngeal airway and neck mobility. Respiratory Examination: symmetrical excursion Cardiac: RRR, no murmurs Abd:soft/ntd ASA Grade: III - A patient with severe systemic disease. After reviewing the risks and benefits, the patient was deemed in satisfactory condition to undergothe procedure. The anesthesia plan was to use general anesthesia. Yakelin Tillman DO Gastroenterology and Hepatology 03/01/2024 documented in this encounter Procedure Notes * Clinton Ann PA-Bam - 03/01/2024 9:48 AM EDTAssociated Order(s): UPPER GI ENDOSCOPY [facility] Patient Name: Amara Stoll Procedure Date: 03/01/2024 9:48 AM Date of : 1945 Admit Type: Outpatient Note Status: Finalized Date of : 1945 Admit Type: Outpatient Age: 78 Room: [facility] 3 Gender: Female Note Status: Finalized Procedure: Upper GI endoscopy Indications: Follow-up of esophageal varices Providers: Yakelin Tillman DO (Doctor) Patient Profile: This is a 78 year old female. Refer to note in patient chart for documentation of history and physical. Referring MD: DERIC Da Silva (Referring MD) Medicines: General Anesthesia Complications: No immediate complications. Procedure: Pre-Anesthesia Assessment: - Prior to the procedure, a History and Physical was performed, and patient medications and allergies were reviewed. The risks and benefits of the procedure and the sedation options and risks were discussed with the patient. All questions were answered and informed consent was obtained. Patient identification and proposed procedure were verified by the physician, the nurse and the extracorporeal technician in the procedure room. Mental Status Examination: alert and oriented. Airway Examination: Mallampati Class II (the uvula but not tonsillar pillars visualized). Respiratory Examination: clear to auscultation. CV Examination: RRR, no murmurs, no S3 or S4. Prophylactic Antibiotics: The patient does not require prophylactic antibiotics. Prior Anticoagulants: The patient has taken no anticoagulant or antiplatelet agents. ASA Grade Assessment: III - A patient with severe systemic disease. After reviewing the risks and benefits, the patient was deemed in satisfactory condition to undergo the procedure. The anesthesia plan was to use general anesthesia. Immediately prior to administration of medications, the patient was re-assessed for adequacy to receive sedatives. The physical status of the patient was re-assessed after the procedure. After obtaining informed consent, the endoscope was passed under direct vision. All instruments were visually inspected immediately before and after removal from the patient to ensure they are fully intact. Throughout the procedure, the patient's blood pressure, pulse, and oxygen saturations were monitored continuously. The upper GI endoscopy was accomplished without difficulty. The patient tolerated the procedure well. The GIF-H180J Endoscope([id number]) was introduced through the mouth, and advanced to the second part of duodenum. Findings & Specimens: The Z-line was regular and was found 35 cm from the incisors. Large (> 5 mm) varices with no bleeding and no stigmata of recent bleeding were found in the entire esophagus. Red tamar signs were present. Six bands were successfully placed with incomplete eradication of varices. There was no bleeding at the end of the procedure. Severe portal hypertensive gastropathy was found in the entire examined stomach. There is no endoscopic evidence of varices in the entire examined stomach. The duodenal bulb and second portion of the duodenum were normal. Impression: - Z-line regular, 35 cm from the incisors. - Large (> 5 mm) esophageal varices with no bleeding and no stigmata of recent bleeding. Multiple red tamar signs were present. Incompletely eradicated. Banded x6. - Portal hypertensive gastropathy. - Normal duodenal bulb and second portion of the duodenum. - No specimens collected. Recommendation: - Patient has a contact number available for emergencies. The signs and symptoms of potential delayed complications were discussed with the patient. Return to normal activities tomorrow. Written discharge instructions were provided to the patient. - The patient will be observed post-procedure, until all discharge criteria are met. - Discharge patient to home (with escort). - Continue present medications. - Repeat EGD in 4-6 weeks for re-treatment. - liquid diet today, soft diet tomorrow, then resume previous diet. - use a PPI 40 mg BID for the next 3 weeks. Yakelin Tillman DO 03/01/2024 10:19:21 AM This report has been signed electronically. documented in this encounter Nursing Notes * Libia Krause RN - 03/01/2024 10:52 AM EDT Patient made aware to be expecting a phone call with scheduling for repeat procedure * Libia Krause RN - 03/01/2024 10:51 AM EDT Patient is alert, pain free, and tolerating po fluids prior to discharge. Patient has been visited by Dr. Tillman. Patient has received and demonstrates understanding of discharge instructions. Patient is transported via w/c to private auto accompanied by endo staff. * Libia Krause RN - 03/01/2024 10:19 AM EDT Patient asleep. Tolerated anesthesia and procedure well. * Talib Reynoso RN - 03/01/2024 10:15 AM EDT See anesthesia record for medication administered during procedure. Talib Reynoso RN Pre cleaning of scope at the bedside started by social services technician. Esophageal varicie banding performed by Dr Tillman. 6 bands placed without difficulty, no active bleeding noted post banding. * Martina Otero RN - 03/01/2024 9:06 AM EDT The following pt discharge instructions reviewed with pt prior to prodedure: No driving today. No alcohol today. No signing of legal documents. Rest as much as possible today and can return to normal activities tomorrow. No operating any heavy equipment today. Diet as tolerated. Pt verbalized understanding. documented in this encounter Plan of Treatment [...] Not on filedocumented as of this encounter Procedures Procedure Name Priority Date/Time Associated Diagnosis Comments UPPER GI ENDOSCOPY 03/01/2024 9: 48 AM EDT documented in this encounter Results * UPPER GI ENDOSCOPY (03/01/2024 9:48 AM EDT) 03/01/2024 9:48 AM EDT Narrative Procedure Note Clinton Ann PA-C - 03/01/2024 9:48 AM EDT [facility] Patient Name: Amara Stoll Procedure Date: 03/01/2024 9:48 AM Date of : 1945 Admit Type: Outpatient Note Status:Finalized Date of : 1945 Admit Type: Outpatient Age: 78 Room: Endo 3 Gender: Female Note Status: Finalized Procedure: Upper GI endoscopy Indications: Follow-up of esophageal varices Providers: Yakelin Tillman DO (Doctor) Patient Profile: This is a 78 year old female. Refer to note inpatient chart for documentation of history and physical. Referring MD: DERIC Da Silva (Referring MD) Medicines: General Anesthesia Complications: No immediate complications. Procedure: Pre-Anesthesia Assessment: - Prior to the procedure, a History and Physicalwas performed, and patient medications and allergies were reviewed. The risksand benefits of the procedure and the sedation options and risks were discussed withthe patient. All questions were answered and informed consent was obtained. Patientidentification and proposed procedure were verified by the physician, the nurseand the extracorporeal technician in the procedure room. Mental Status Examination: alertand oriented. Airway Examination: Mallampati Class II (the uvula but not tonsillarpillars visualized). Respiratory Examination: clear to auscultation. CV Examination:RRR, no murmurs, no S3 or S4. Prophylactic Antibiotics: The patient does notrequire prophylactic antibiotics. Prior Anticoagulants: The patient has taken noanticoagulant or antiplatelet agents. ASA Grade Assessment: III - A patient with severesystemic disease. After reviewing the risks and benefits, the patient was deemed insatisfactory condition to undergo the procedure. The anesthesia plan was to usegeneral anesthesia. Immediately prior to administration of medications, the patient wasre-assessed for adequacy to receive sedatives. The physical status of the patient wasre-assessed after the procedure. After obtaining informed consent, the endoscope waspassed under direct vision. All instruments were visually inspected immediatelybefore and after removal from the patient to ensure they are fully intact. Throughout the procedure, the patient's bloodpressure, pulse, and oxygen saturations were monitored continuously. The upper GI endoscopywas accomplished without difficulty. The patient tolerated the procedurewell. The GIF-H180J Endoscope([id number]) was introduced through [facility], and advanced to the second part of duodenum. Findings & Specimens: The Z-line was regular and was found 35 cm from the incisors. Large (> 5 mm) varices with no bleeding and no stigmata of recentbleeding were found in the entire esophagus. Red tamar signs were present. Six bands were successfullyplaced with incomplete eradication of varices. There was no bleeding at the end of the procedure. Severe portal hypertensive gastropathy was found in the entireexamined stomach. There is no endoscopic evidence of varices in the entire examinedstomach. The duodenal bulb and second portion of the duodenum were normal. Impression: - Z-line regular, 35 cm from the incisors. - Large (> 5 mm) esophageal varices with nobleeding and no stigmata of recent bleeding. Multiple red tamar signs were present.Incompletely eradicated. Banded x6. - Portal hypertensive gastropathy. - Normal duodenal bulb and second portion of theduodenum. - No specimens collected. Recommendation: - [facility] The signs and symptoms of potential delayed complications were discussed withthe patient. Return to normal activities tomorrow. Written discharge instructionswere provided to the patient. - The patient will be observed post-procedure,until all discharge criteria are met. - Discharge patient to home (with escort). - Continue present medications. - Repeat EGD in 4-6 weeks for re-treatment. - liquid diet today, soft diet tomorrow, thenresume previous diet. - use a PPI 40 mg BID for the next 3 weeks. Yakelin Tillman DO 03/01/2024 10:19:21 AM This report has been signed electronically. Clinton Ann PA-C GASTRO [facility] documented in this encounter Administered Medications Inactive Administered Medications - up to 3 most recent administrations Medication Order MAR Action Action Date Dose Rate Site isolyte-S pH 7.4 infusion Intravenous, at 100 mL/hr, Plasma-LYTE 148, isolyte-S, and isolyte-S pH 7.4 are considered equivalent - including for MAR barcode scanning., CONTINUOUS, Starting on Wed03/01/24 at 0930, Until Wed03/01/24 at 1453, Pre-Op Restarted 03/01/2024 10:15 AM EDT Continue from Pre-Op 03/01/2024 9:54 AM EDT 100 mL/hr New Bag 03/01/2024 9:24 AM EDT 100 mL/hr documented in this encounter Active and Recently Administered Medications Times are shown in EDT. Continuous Medication Order 02/28/2024 02/29/2024 03/01/2024 isolyte-S pH 7.4 infusion Intravenous, at 100 mL/hr, Plasma-LYTE 148, isolyte-S, and isolyte-S pH 7.4 are considered equivalent - including for MAR barcode scanning., CONTINUOUS, Starting on Wed03/01/24 at 0930, Until Wed03/01/24 at 1453, Pre-Op 0924 (New Bag - Prov ider: Martina Otero RN)0954 (Continue from Pre-Op - Provider: Victorina Albrecht CRNA)1014 (Paused - Provider: Victorina Albrecht CRNA - Comment: Switch to gravity)1015 (Restarted - Provider: Victorina Albrecht CRNA) documented in this encounter Care Teams Steam Train Driver Relationship Specialty Start Date End Date Clinton Ann PA-C [address] [place] [id number] PCP - General Physician Director Of Content And Programming 02/05/22 documented as of this encounter
--- OUTSIDE RECORDS SUMMARY | 2024-03-09 12:52 | External Medical Summary | Summary of Care ---
Author Name Unknown Organization [facility] Address [address] [facility] [place] [address] Phone [phone] Care Team Providers Care Business Solutions Consultant Name Role Phone Clinton Ann PA-C Primary Care Provide r Encounter Details Date Type Department Care Team (Late st Contact Info) Description 03/07/2024 Telephone Hepatology, [facility] [address] [place] [address] Yakelin Tillman DO [address] [place] [address] Allergies Active Allergy Reactions Criticality Noted Date [...] on file documented as of this encounter Plan of Treatment Upcoming Encounters Date Type Department Care Team (Latest Contact Info) Description 04/12/2024 3:00 PM EDT Office Visit Hepatology, [facility] [address] [place] [address] Yakelin Tillman DO [address] [place] [address] 04/27/2024 9:45 AM EDT Hospital Encounter [facility], Endoscopy Room [facility] [address] [phone] Yakelin Tillman DO [address] [place] [address] 04/27/2024 9:45 AM EDT - 04/27/2024 10:15 AM EDT Surgery [facility]O [facility], Endoscopy Room [facility] [address] [place] [phone] Yakelin Tillman DO [address] [place] [address] ESOPHAGOGASTRODUODENOSCOPY (EGD), FLEXIBLE, TRANSORAL, DIAGNOSTIC Scheduled Orders Name Type Priority Associated Diagnoses Orde r Schedule HEPATIC FUNCTION PANEL Lab Routine Cirrhosis of liver without ascites, unspecified hepatic cirrhosis type (HCC) Expected: 03/07/2024, Expires: 03/07/2025 PT INR Lab Routine Cirrhosis of liver without ascites, unspecified hepatic cirrhosis type (HCC) Expected: 03/07/2024, Expires: 03/07/2025 CBC WITH WBC DIFFERENTIAL Lab Routine Cirrhosis of liver without ascites, unspecified hepatic cirrhosis type (HCC) Expected: 03/07/2024, Expires: 03/07/2025 BASIC METABOLIC PANEL Lab Routine Cirrhosis of liver without ascites, unspecified hepatic cirrhosis type (HCC) Expected: 03/07/2024, Expires: 03/07/2025 ALPHA-FETOPROTEIN TUMOR MARKER Lab Routine Cirrhosis of liver without ascites, unspecified hepatic cirrhosis type (HCC) Expected: 03/07/2024, Expires: 03/07/2025 Scheduled Procedures Name Priority Associated Diagnoses Date/Ti [...] Not on filedocumented as of this encounter Visit Diagnoses Diagnosis Cirrhosis of liver without ascites, unspecified hepatic cirrhosis type (HCC)- Primary Abnormal LFTs Other abnormal blood chemistry Hepatic fibrosis Cirrhosis of liver without mention of alcohol documented in this encounter Care Teams Business Solutions Consultant Relationship Specialty Start Date End Date Clinton Ann PA-C [address] [place] [address] PCP - General Physician Switchboard Manager 02/05/22 documented as of this encounter
--- OUTSIDE RECORDS SUMMARY | 2024-03-09 12:53 | External Medical Summary | Summary of Care ---
Author Name Unknown Organization [facility] Address [address] [facility] [place] [address] Phone [phone] Care Team Providers Care Canine Service Teacher Name Role Phone Clinton Ann PA-C Primary Care Provide r Encounter Details Date Type Department Care Team (Late st Contact Info) Description 03/01/2024 Telephone Hepatology, [facility] [address] [place] [id number] Yakelin Tillman DO [address] [place] [id number] Allergies Active Allergy Reactions Criticality Noted Date Comments Other Allergy (See Comments) Rash High 024 Jergens -ultra healing lotion- severe contact dermatitis- had to be put on steroids Sulfa Antibiotics Hives 12/01/2016 documented as of this encounter (statuses as of 03/01/2024) Medications Medication Sig Dispensed Refills Start Date End Date Status Omeprazole 40 MG Oral Capsule Delayed Release (PriLOSEC)Indicat ions:Cirrhosis of liver without ascites, unspecified hepatic cirrhosis type (HCC) Take 1 Capsule by mouth 2 times a day with morning and evening meals. 60 Capsule 1 03/01/2024 Active CLARITIN 10 MG OR TABSIndications:a s needed Take by mouth. As needed 30 6 03/06/2004 Suspended lisinopril (PRINIVIL) 10 MG Tablet Take 2 Tablets by mouth in the morning. Suspended Omeprazole 20 MG Oral Capsule Delayed Release Take 1 Capsule by mouth in the morning. Discontinued LORazepam (ATIVAN) 1 MG Tablet Take 1 Tablet by mouth every 6 hours as needed. Suspended Atorvastatin Calcium 20 MG Oral Tablet (Lipitor) Take 1 Tablet by mouth in the morning. Suspended Meloxicam 7.5 MG Oral Tablet (Mobic)Indication s:as needed Take 1 Tablet by mouth in the morning. Suspended Centrum Silver 50+Women Oral Tablet Take by mouth daily. Suspended Vitamin C 500 MG Oral Tablet Chewable Take 2 Tablets by mouth in the morning. Suspended Vitamin D3 Super Strength 50 MCG (2000 UT) Oral Capsule (Cholecalciferol) Take 4 Capsules by mouth in the morning. Suspended Caltrate 600+D Plus Minerals 600-800 MG-UNIT Oral Tablet Take 2 Tablets by mouth in the morning. Suspended Vitamin B 12 100 MCG Oral Lozenge Take 2 Lozenges by mouth in the morning. Suspended Azithromycin 250 MG Oral TabletIndications :2 tablets on 12-03-22 1 tablet x 3 days last dose 12-07-22 Take 1 Tablet by mouth in the morning. Suspended Oxybutynin Chloride ER 10 MG Oral Tablet Extended Release 24 Hour (Ditropan XL)Indications:as needed Take 1 Tablet by mouth in the morning. Take 1 tablet at night. Suspended Fluticasone Propionate 50 MCG/ACT Nasal Suspension (Flonase) Administer into nostril as needed. 12/16/2022 Suspended Famotidine 40 MG Oral Tablet (Pepcid) Take 1 Tablet by mouth in the morning and 1 Tablet before bedtime. Suspended Cetirizine HCl 10 MG Oral Capsule Take 1 Capsule by mouth in the morning. Suspended diphenhydrAMINE HCl 25 MG Oral Capsule (Benadryl Allergy) Take 1 Capsule by mouth every 6 hours as needed for Itching. Suspended Triamcinolone Acetonide 0.1 % External Cream (Aristocort) Apply topically to affected area daily. Apply to arms for rash Suspended methylPREDNISolon e 4 MG Oral Tablet Therapy Pack (Medrol Dosepack) Take 1 Tablet by mouth in the morning. follow package directions. Suspended documented as of this encounter (statuses as [...] as of this encounter Plan of Treatment Scheduled Procedures [...] ascites, unspecified hepatic cirrhosis type (HCC)- Primary documented in this encounter Care Teams Canine Service Teacher Relationship Specialty Start Date End Date Clinton Ann PA-C [address] [place] [phone] PCP - General Physician Control Officer 02/05/22 documented as of this encounter
[2024-03-09] MEDS: OPTIRAY 320 100ml IV ONE (13:02)
[2024-03-09] MEDS: SODIUM CHLORIDE 0.9% 500 ML IV STA (13:11)
[2024-03-09 13:34] LABS: Appearance Urine Clear (Clear); Bacteria Urine Automated None Seen (None Seen); Bilirubin Urine Negative (Negative); Blood Urine Trace (Negative); Cast Urine Automated 0-2 /lpf (0-2); Color Urine Yellow; Epithelial Cell Urine Auto 0-2 /hpf (0-2); Glucose Urine UA Negative (Negative); Ketones Urine Negative (Negative); Leukocyte Esterase Urine 2+ (Negative); Nitrite Urine Negative (Negative); Protein Urine Negative (Negative); RBC Urine Automated 0-2 /hpf (0-2); Specific Gravity Urine 1.008 (1.000-1.030); Urobilinogen Urine Negative (Negative); WBC Urine Automated 0-5 /hpf (0-5)
--- NOTE | 2024-03-09 14:27 | CT Scan Report ---
CT abd pelvis IV con only CLINICAL HISTORY: abd pain, GIB TECHNIQUE: Helical axial images of the abdomen and pelvis were obtained and displayed. Automated dose lowering techniques and/or adjustment according to patient size were utilized for this exam. This e xam was performed with intravenous contrast. CT DOSE: 970.44 mGy.cm COMPARISON: Comparison is made to abdomen radiograph 05/02/2014 FINDINGS: Lower chest: Bibasilar atelectasis versus scarring is seen. Liver: Nodular contour of the liver is seen compatible with cirrhosis. Gallbladder and biliary tree: No calcified gallstones. Normal caliber wall. No intra- or extrahepatic biliary ductal dilation. Pancreas: Unremarkable, no focal lesions. Spleen: Splenomegaly is noted, the spleen measures 15.6 mm. Adrenals: Unremarkable. Kidneys and ureters: Renal cysts are seen. Bladder: Unremarkable. Reproductive organs: Unremarkable. Bowel: Diverticulosis is seen without evidence of diverticulitis. Patient is status post appendectomy . There is a small hiatal hernia. Lymph nodes Retroperitoneal: Subcentimeter lymph nodes are noted. Pelvic: Unremarkable. Mesenteric: Unremarkable. Peritoneum: Ascites is seen. Vessels: Atherosclerotic calcifications are seen. Perigastric and paraesophageal varices are seen. Abdominal wall: Unremarkable. Bones: Degenerative changes in the visualized spine. IMPRESSION: 1. No acute abnormalities are seen to suggest etiology of gastrointestinal bleed. 2. Cirrhosis and stigmata of portal hypertension. ACT 112: Negative or not required by law. Electronically signed by: Truong Tinajero M.D. 03/09/2024 2:25 PM
--- NOTE | 2024-03-09 14:31 | Gastrointestinal Consultation ---
Date of Consultation March 09, 2024 Assessment & Plan (1) Melena: Plan Patient is a 78 year old female with history of cirrhosis and esophageal varices, here today for sudden onset melena. she had recent banding done at [facility] on 02/28/24. hgb 11.4. no further melena since this morning. discussed case with Dr. Byrnes and Dr. Skelton. - today's labs reviewed with patient. - Patient given protonix drip and octreotide. Would continue with this. - Recommend supportive care at this time. - Continue to monitor hgb/hct. tranfuse as needed. - we discussed an EGD to further evaluate. She would like to see how she does today. Will make NPO at midnight in case we need to pursue an EGD tomorrow. will plan to reassess tomorrow morning. - further recommendations will follow, please see Dr. Byrnes's append. Supervising Physician Co-Signing Physician Notes I examined the patient and reviewed patient's chart , laboratory data and imaging studies. I agree with with assessment and plan of care as suggested by advanced practice provider. Melena about 1 week after esophageal variceal ligation. Likely etiology is the bleeding from sloughed banded mucosa and resulting esophageal ulceration. Bleeding appears to be minor. The patient will be n.p.o. after midnight years. History of Present Illness Reason for Consultation: melena, esophageal varices. Requesting Physician: Ruben Skelton DO History of Present Illness Patient is a 78 year old female with history of cirrhosis with esophageal varices, who presents to the emergency department on 03/09 with complaints of melena. Patient states that she had esophageal variceal banding performed on 02/27 with [facility] gastroenterology at the [facility]. Patient states she seemed to be recovering well until last night when she had some nausea and then had one "black colored" bowel movement. Patient states she probably had 2- 3 more overnight into this morning and therefore she came to the ER to be assessed. On arrival here to the ED the patient was hemodynamically stable and she otherwise appears to be in no acute distress. Hgb as 11.4. She had CT scan performed (see below). Patient denies any hematemesis. She has not had any further melena since 9 this morning per patient. rest of GI ros are unremarkable. Allergies Allergy/AdvReac Type Severity Reaction Status Date / Time latex Allergy Severe Rash Unverified 03/09/24 13:50 Latex, Natural Rubber Allergy Severe Rash Unverified 03/09/24 13:50 Sulfa (Sulfonamide Allergy Severe Hives Unverified 03/09/24 13:50 Antibiotics) Home Medications Medication Instructions Recorded Confirmed Type atorvastatin 20 mg tablet 20 mg PO DAILY 03/09/24 03/09/24 History cetirizine 10 mg tablet 10 mg PO DAILY 03/09/24 03/09/24 History famotidine 40 mg tablet 40 mg PO BID 03/09/24 03/09/24 History ibuprofen 200 mg tablet (Advil) 200 mg PO Q6H PRN Pain 03/09/24 03/09/24 History lisinopril 20 mg tablet 20 mg PO DAILY 03/09/24 03/09/24 History omeprazole 40 mg capsule,delayed 40 mg PO BID 03/09/24 03/09/24 History release Patient History Medical History Diverticulosis HLD (hyperlipidemia) HTN (hypertension) 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 Surgical History History of hysterectomy History of appendectomy Social History Smoking Status: Never smoker Preferred Language: Nigerian Feels Safe at Home: Yes Review of Systems Review of Systems: All systems reviewed & are unremarkable except as noted in HPI & below Physical Exam Constitutional: WD/WN, vitals as above Respiratory: normal respiratory effort, lungs clear to auscultation Cardiovascular: Rate/Rhythm: regular rate and regular rhythm Gastrointestinal (Abdomen): normal bowel sounds, soft, nontender, no hepatosplenomegaly Psychiatric: Orientation: alert and oriented x 3 Affect: euthymic affect Results & Data Vital Signs (Past 12 Hours) Vital Signs Temp Pulse Pulse Resp BP BP Pulse Ox 03/09/24 14:19 58 L 03/09/24 11:52 59 L 18 120/63 99 03/09/24 10:21 67 03/09/24 10:04 03/09/24 09:56 97.5 F L 66 18 128/59 L 99 O2 Del Method 03/09/24 14:19 03/09/24 11:52 Room Air 03/09/24 10:21 03/09/24 10:04 Room Air 03/09/24 09:56 Room Air Diagnostic Findings CT abd pelvis IV con only CLINICAL HISTORY: abd pain, GIB TECHNIQUE: Helical axial images of the abdomen and pelvis were obtained and displayed. Automated dose lowering techniques and/or adjustment according to patient size were utilized for this exam. This exam was performed with intravenous contrast. CT DOSE: 970.44 mGy.cm COMPARISON: Comparison is made to abdomen radiograph 05/02/2014 FINDINGS: Lower chest: Bibasilar atelectasis versus scarring is seen. Liver: Nodular contour of the liver is seen compatible with cirrhosis. Gallbladder and biliary tree: No calcified gallstones. Normal caliber wall. No intra- or extrahepatic biliary ductal dilation. Pancreas: Unremarkable, no focal lesions. Spleen: Splenomegaly is noted, the spleen measures 15.6 mm. Adrenals: Unremarkable. Kidneys and ureters: Renal cysts are seen. Bladder: Unremarkable. Reproductive organs: Unremarkable. Bowel: Diverticulosis is seen without evidence of diverticulitis. Patient is status post appendectomy. There is a small hiatal hernia. Lymph nodes Retroperitoneal: Subcentimeter lymph nodes are noted. Pelvic: Unremarkable. Mesenteric: Unremarkable. Peritoneum: Ascites is seen. Vessels: Atherosclerotic calcifications are seen. Perigastric and paraesophageal varices are seen. Abdominal wall: Unremarkable. Bones: Degenerative changes in the visualized spine. IMPRESSION: 1. No acute abnormalities are seen to suggest etiology of gastrointestinal bleed. 2. Cirrhosis and stigmata of portal hypertension. ACT 112: Negative or not required by law. Electronically signed by: Truong Tinajero M.D. 03/09/2024 2:25 PM Coding Level of Care Code 70743 ER DEPT VISIT MOD LVL 4 Diagnoses Melena K92.1
--- NOTE | 2024-03-09 14:56 | History & Physical Report ---
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 Noticed black stools starting last night around 11PM - mostly diarrhea, approximately 3 additional BMs since last night. Last BM around 11AM this morning. Did notice a slight red tinge to her stools as well, although they were mostly dark black in appearance. Never has had a blood transfusion before. Follows with [facility]. Had an EGD w/ banding x 6 performed on 03/01/[address] Yakelin Tillman. EGD also showed the following: large (>5mm) esophageal varices with no bleeding and no stigmata of recent bleeding, portal hypertensive gastropathy. Melena, GERD w/ Esophagitis: History as per above. Hgb 11.4 on presentation. No leukocytosis, UA negative. CTAP w/ no acute abnormalities to suggest cause of bleeding. GI consulted, evaluated patient in ED. GI recommended IV Protonix bolus/drip + IV octreotide - both were started in ED, will continue for now. Gentle IVF. Type/crossed for 2 units PRN. Blood consent obtained. Trend H/H Q6H. Clear liquid diet for now. NPO at midnight pending EGD tomorrow. Liver Cirrhosis 2/2 OVERTON: Alk phos 135, total bili 1.9 on admission. Repeat LFTs in AM. Avoid hepatotoxic meds when able. Other Chronic Medical Conditions: HTN, HLD, seasonal allergies --> Continue home meds for these specific conditions. DVT Prophylaxis: SCDs/TEDs for now in setting of active GI bleeding. Code Status: FULL CODE PCP: Clinton Ann PA-C Disposition: Admit to PCU/Telemetry Patient seen in collaboration with Dr. Serra. Please see addendum. I spent a total of 45 minutes coordinating, documenting, and providing care for this patient excluding time spent in the performance of separately billed services. This included personally reviewing all current laboratories and imaging studies, medical reconciliation, outpatient chart review and discussion with specialists. This chart was completed in part utilizing Speech Voice Recognition Software. Grammatical errors, random word insertions, pronoun errors, and incomplete sentences are an occasional consequence of this system due to software limitations, ambient noise, and hardware issues. Any formal questions or concerns about the content, text, or information contained within the body of this dictation should be directly addressed to the provider for clarification. 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 History obtained from patient and associated chart review. Patient seen at bedside with Dr. Serra. Noticed black stools starting last night around 11PM - mostly diarrhea, approximately 3 additional BMs since last night. Last BM around 11AM this morning. Did notice a slight red tinge to her stools as well, although they were mostly dark black in appearance. No nausea/vomiting. Never has had a blood transfusion before. Follows with [facility] MONTERO. Had an EGD w/ banding x 6 performed on 03/01/[address] Yakelin Tillman. EGD also showed the following: large (>5mm) esophageal varices with no bleeding and no stigmata of recent bleeding, portal hypertensive gastropathy. Most recent colonoscopy on 12/07/22 with diverticulosis, internal hemorrhoids. No specimens were collected. Allergies Allergy/AdvReac Type Severity Reaction Status Date / Time latex Allergy Severe Rash Unverified 03/09/24 13:50 Latex, Natural Rubber Allergy Severe Rash Unverified 03/09/24 13:50 Sulfa (Sulfonamide Allergy Severe Hives Unverified 03/09/24 13:50 Antibiotics) Home Medications Medication Instructions Recorded Confirmed Type atorvastatin 20 mg tablet 20 mg PO DAILY 03/09/24 03/09/24 History cetirizine 10 mg tablet 10 mg PO DAILY 03/09/24 03/09/24 History famotidine 40 mg tablet 40 mg PO BID 03/09/24 03/09/24 History ibuprofen 200 mg tablet (Advil) 200 mg PO Q6H PRN Pain 03/09/24 03/09/24 History lisinopril 20 mg tablet 20 mg PO DAILY 03/09/24 03/09/24 History omeprazole 40 mg capsule,delayed 40 mg PO BID 03/09/24 03/09/24 History release Past Med/Surg History Problem List Melena Medical History Diverticulosis HLD (hyperlipidemia) HTN (hypertension) Liver cirrhosis secondary to OVERTON Surgical History History of hysterectomy History of appendectomy Social History Smoking Status: Never smoker Hx Alcohol Use: No Hx Substance Use: No Preferred Language: Spanish Global Creative Chairman Required: No Beliefs That Will Affect Care: None Current Living Situation: Family Other Information That Helps Us Care for You: No Feels Safe at Home: Yes Safety Concerns: Feels Safe At This Time Assistive Devices: Glasses Review of Systems Review of Systems: At least ten systems reviewed and negative, except as noted in the HPI. Physical Exam Physical Exam: Please refer to Dr. Serra's addendum for physical examination findings. Results & Data Results & Data Vital Signs (Past 12 Hours) Vital Signs Temp Pulse Pulse Resp BP BP Pulse Ox 03/09/24 14:19 58 L 03/09/24 11:52 59 L 18 120/63 99 03/09/24 10:21 67 03/09/24 10:04 03/09/24 09:56 36.4 C L 66 18 128/59 L 99 O2 Del Method 03/09/24 14:19 03/09/24 11:52 Room Air 03/09/24 10:21 03/09/24 10:04 Room Air 03/09/24 09:56 Room Air Laboratory Results Short CBC 03/09/24 Range/Units 10:32 WBC 10.39 (4.8-10.8) K/ul Hgb 11.4 L (12.0-16.0) g/dl Hct 32.4 L (37.0-47.0) % Plt Count 126 L (130-400) K/uL BMP 03/09/24 10:32 Sodium 135 L Potassium 3.9 Chloride 105 Carbon Dioxide 21 BUN 25 H Creatinine 1.11 Glucose 103 H Calcium 9.4 Liver Function 03/09/24 Range/Units 10:32 Total Bilirubin 1.9 H (0.2-1.0) mg/dl AST 25 (13-39) U/L ALT 26 (7-52) U/L Alkaline Phosphatase 135 H (34-104) U/L Albumin 3.7 (3.4-5.0) gm/dl Urine 03/09/24 Range/Units 13:01 Urine Color Yellow Urine Appearance Clear (Clear) Urine pH 7.0 (4.5-7.5) Ur Specific Adams 1.008 (1.000-1.030) Urine Protein Negative (Negative) Urine Glucose (UA) Negative (Negative) Diagnostic Findings Abdomen/Pelvis CT 03/09/24 10:12 CT abd pelvis IV con only CLINICAL HISTORY: abd pain, GIB TECHNIQUE: Helical axial images of the abdomen and pelvis were obtained and displayed. Automated dose lowering techniques and/or adjustment according to patient size were utilized for this exam. This exam was performed with intravenous contrast. CT DOSE: 970.44 mGy.cm COMPARISON: Comparison is made to abdomen radiograph 05/02/2014 FINDINGS: Lower chest: Bibasilar atelectasis versus scarring is seen. Liver: Nodular contour of the liver is seen compatible with cirrhosis. Gallbladder and biliary tree: No calcified gallstones. Normal caliber wall. No intra- or extrahepatic biliary ductal dilation. Pancreas: Unremarkable, no focal lesions. Spleen: Splenomegaly is noted, the spleen measures 15.6 mm. Adrenals: Unremarkable. Kidneys and ureters: Renal cysts are seen. Bladder: Unremarkable. Reproductive organs: Unremarkable. Bowel: Diverticulosis is seen without evidence of diverticulitis. Patient is status post appendectomy. There is a small hiatal hernia. Lymph nodes Retroperitoneal: Subcentimeter lymph nodes are noted. Pelvic: Unremarkable. Mesenteric: Unremarkable. Peritoneum: Ascites is seen. Vessels: Atherosclerotic calcifications are seen. Perigastric and paraesophageal varices are seen. Abdominal wall: Unremarkable. Bones: Degenerative changes in the visualized spine. IMPRESSION: 1. No acute abnormalities are seen to suggest etiology of gastrointestinal bleed. 2. Cirrhosis and stigmata of portal hypertension. ACT 112: Negative or not required by law. Electronically signed by: Truong Tinajero M.D. 03/09/2024 2:25 PM Medications Administered Pantoprazole Sodium 40 mg/ (Dextrose) 100 mls @ 20 mls/hr IV Q5H SINDI Stop: 04/08/24 10:29 Last Admin: 03/09/24 10:56 Dose: 8 mg/hr, 20 mls/hr Documented By: REFUGIO Discontinued Medications Sodium Chloride (Nss) 500 mls @ 999 mls/hr IV .Q31M STA Stop: 03/09/24 10:34 Last Infusion: 03/09/24 13:46 Dose: Infused Documented By: Admin: 03/09/24 13:11 Dose: 999 mls/hr Documented By: FREDI Pantoprazole Sodium 80 mg/ (Dextrose) 120 mls @ 480 mls/hr IV NOW ONE Stop: 03/09/24 10:26 Last Infusion: 03/09/24 11:13 Dose: Infused Documented By: Admin: 03/09/24 10:52 Dose: 480 mls/hr Documented By: REFUGIO Octreotide Acetate 50 mcg/ (Syringe) 10 mls @ 3 mls/min IV ONE STA Stop: 03/09/24 10:15 Last Admin: 03/09/24 10:51 Dose: 3 mls/min Documented By: REFUGIO Ioversol (Optiray 320 100ml) 92 ml IV ONCE ONE Stop: 03/09/24 13:03 Last Admin: 03/09/24 13:02 Dose: 92 ml Documented By: REBA Miscellaneous (Stat Iv/Im) 1 each N/A NOW STA Stop: 03/09/24 10:13 Last Admin: 03/09/24 11:14 Dose: Not Given Documented By: FREDI Pantoprazole Sodium (Pantoprazole Bolus/Drip) 1 each IV NOW STA Stop: 03/09/24 10:13 Last Admin: 03/09/24 11:13 Dose: Not Given Documented By: FREDI Code Status & VTE Plan Code Status FULL CODE Supervising Physician Co-Signing Physician Notes Patient is a 78-year-old female with history of [place] cirrhosis, GERD with esophagitis, hyperlipidemia, hypertension and other medical problems presents with history of melena since 2 days duration. Patient admits to have diarrhea associated with it. She had history of esophageal varices requiring banding in February 2024. EGD at the time showed esophageal varices with findings suggestive of portal hypertensive gastropathy. Patient denied any recent NSAID use. Please review HPI for complete details of presentation. I personally reviewed blood work and imaging studies. CT abdomen not contributory at this time. Physical Exam: Vitals signs as noted above General Appearance:Moderately built and nourished, no apparent distress Head: normocephalic, Atraumatic Eyes: normal inspection, EOMI Neck: supple, Trachea midline Respiratory/Chest: Normal breath sounds, CTA, No accessory muscle use Cardiovascular: S1, S2, No murmur Abdomen/GI:Soft, Non tender, Bowel sounds present Extremities/Musculoskeletal:normal inspection, 1+edema--chronic per patient Neurologic/Psych:AAOX3, grossly no focal neurological deficits Skin: normal color, warm Melena Acute blood loss anemia Thrombocytopenia H/O OVERTON cirrhosis with esophageal varices, portal hypertensive gastropathy, diverticulosis, internal hemorrhoids Continue IV Protonix, octreotide drip Monitor H&H and transfuse as needed Avoid anticoagulation Appreciate GI input N.p.o. after midnight for possible EGD tomorrow Stool studies if recurrence of diarrhea I personally interviewed and examined at bedside. Patient's care is coordinated with Lisbeth Moscoso PA-C. I have reviewed the advanced practitioner's documentation, and I agree with plan of care. Please refer to the documentation above for details of patient's presentation and for discussion of other issues. I spent a total [id number] coordinating, documenting, and providing care for this patient excluding time spent in the performance of separately billed services.
[2024-03-09] MEDS ORDERED: SODIUM CHLORIDE 0.9% 250 ML IV PRN (15:01)
[2024-03-09] MEDS ORDERED: STAT IV/IM STA (16:19)
[2024-03-09] MEDS ORDERED: ONDANSETRON INJ 2 MG/ML 2 ML VIAL IV PRN (16:19)
[2024-03-09] MEDS: OCTREOTIDE ACETATE 500 MCG in 0.9 % SODIUM CHLORIDE 100 ML IV SCH (17:00)
[2024-03-09] MEDS: SODIUM CHLORIDE 0.9% 1,000 ML IV SCH (17:00)
[2024-03-09 17:11] LABS: Hematocrit (blood only) 34.3 % (37.0-47.0); Hemoglobin 11.6 g/dl (12.0-16.0)
--- OUTSIDE RECORDS SUMMARY | 2024-03-09 22:47 | External Medical Summary | Summary of Care ---
Author Name Unknown Organization [facility] Address [address] [place] [address] Phone [phone] Care Team Providers Care Home Theater Experience Expert Name Role Phone Clinton Ann PA-C Primary Care Provide r Reason for Visit * Reason Onset Date Comments FYI 03/09/2024 Encounter Details Date Type Department Care Team (Late st Contact Info) Description 03/09/2024 Telephone Access Center, [place] [address] [facility] *DO NOT REMOVE THIS DEPARTMENT* [place] [address] Services, Scheduling [address] [place] [address] FY Allergies Active Allergy Reactions Criticality Noted Date Comments Other Allergy (See Comments) Rash High 024 Jergens -ultra healing lotion- severe contact dermatitis- had to be put on steroids Sulfa Antibiotics Hives 12/01/2016 documented as of this encounter (statuses as of 03/09/2024) Medications Medication Sig Dispensed Refills Start Date [...] as of this encounter (statuses as of 03/09/2024) Active Problems Problem Noted Date Diagnosed Date HTN, goal to be determined 03/06/2004 NONALLERGIC RHINITIS 03/06/2004 Wheezing 03/06/2004 documented as of this encounter (statuses as of 03/09/2024) Social History Tobacco Use Types Packs/Day Years [...] Telephone Encounter - Mona Jackson LPN - 03/09/2024 10:12 AM EDT Phone call placed to Amara's home. Spoke with Brina. She reports that Amara still has blood in her stool this morning. Brina wasn't sure how much, but it was enough to scare Amara. On 03/01/24, she vomited brown mucous after her EGD w/ Banding. Advised to go to ED if vomited BRB. * Telephone Encounter - Melissa Cornejo OSA - 03/09/2024 9:04 AM EDT Patient wanted to let Dr. Tillman that she is on her way to [facility]. Last night, her stools were black and had blood in them. Patient is asking for a call back from Dr. Tillman. documented in this encounter Plan of Treatment Upcoming Encounters Date Type Department Care Team (Latest Contact Info) Description 04/12/2024 3:00 PM EDT Office Visit Hepatology, [facility] [address] [place] [address] Yakelin Tillman, [address] [place] [address] 04/27/2024 9:45 AM EDT Hospital Encounter ENDO [facility], Endoscopy Room [facility] [address] [place] [id number] Yakelin Tillman DO [address] [place] [address] 04/27/2024 9:45 AM EDT - 04/27/2024 10:15 AM EDT Surgery ENDO [facility], Endoscopy Room [facility] [address] [place] [phone] Yakelin Tillman DO [address] [place] [address] ESOPHAGOGASTRODUODENOSCOPY (EGD), FLEXIBLE, TRANSORAL, DIAGNOSTIC Scheduled Procedures [...] 04/15/2021, Additional history exists GFR 08/06/2024 08/06/2023, 10/0 08/2022, 01/19/2023, Additional history exists Colonoscopy 12/08/2027 12/07/2022, 06/0 11/2022, 12/09/2016, Additional history exists Pneumococcal Vaccine: [...] filedocumented as of this encounter Care Teams Home Theater Experience Expert Relationship Specialty Start Date End Date Clinton Ann PA-C [address] [place] [id number] PCP - General Physician Child Care Team Lead 02/05/22 documented as of this encounter
[2024-03-09 22:55] LABS: Hematocrit (blood only) 28.3 % (37.0-47.0); Hemoglobin 9.8 g/dl (12.0-16.0)
[2024-03-10 05:09] LABS: BUN Creatinine Ratio 19.6 (10-20); Bilirubin Direct 0.4 mg/dl (0-0.2); Bilirubin,Total 1.4 mg/dl (0.2-1.0); Calcium 8.2 mg/dl (8.6-10.3); Creatinine Clr Calc Pharmacy 40.5 ml/min; Est GFR (African American) 55.3 ml/min; Est GFR (Non-African American) 47.7 ml/min; Magnesium 1.6 mg/dl (1.7-2.4); Phosphorus 3.6 mg/dl (2.5-4.9); Total Protein 5.1 gm/dl (6.0-8.3)
[2024-03-10 05:43] LABS: Hematocrit (blood only) 28.6 % (37.0-47.0); Hemoglobin 9.7 g/dl (12.0-16.0); Mean Corpuscular Hemoglobin 29.6 pg (25.0-34.0); Mean Corpuscular Hgb Conc 33.9 g/dL (32.0-36.0); Mean Corpuscular Volume 87.2 fL (80.0-100.0); Platelet Count 78 K/uL (130-400); Platelet Estimate Decreased (Normal); RDW Coefficient of Variation 15.9 % (11.5-14.5); RDW Standard Deviation 50.5 fL (36.4-46.3); Red Blood Count 3.28 M/uL (4.20-5.40); White Blood Count 5.21 K/ul (4.8-10.8)
[2024-03-10] MEDS: ATORVASTATIN 20 MG TAB PO SCH (09:18)
[2024-03-10] MEDS: lisinopril 20 MG TAB PO SCH (09:18)
[2024-03-10] MEDS: CETIRIZINE HCL 10 MG TABLET PO SCH (09:18)
[2024-03-10] MEDS: MAGNESIUM SULFATE / D5W 1 GM/100 ML BAG IV SCH (09:18)
--- NOTE | 2024-03-10 09:31 | History & Physical Bridge Note ---
Date of Service March 10, 2024 History & Physical Bridge Note I have examined the patient, reviewed the History & Physical and in the interval since the performance of the History & Physical I have noted the following changes of clinical significance: no changes noted. she tells me that she has not moved her bowels since yesterday. hgb did drop from 11.6 to 9.7 today. she denies any nausea, vomiting, abdominal pain, chest pain, or sob. she has been NPO. she tells me she had been using nsaids for a few days earlier this week. - plan to proceed with an EGD today. - I advised the patient to avoid nsaids. Supervising Physician Co-Signing Physician Notes I examined the patient and reviewed patient's chart , laboratory data and imaging studies. I agree with with assessment and plan of care as suggested by advanced practice provider. EGD was canceled by anesthesia due to new onset of SVT. Continue to observe. Defer endoscopy
[2024-03-10 10:59] LABS: Hematocrit (blood only) 29.1 % (37.0-47.0); Hemoglobin 10.3 g/dl (12.0-16.0)
--- NOTE | 2024-03-10 11:52 | Anesthesiology Consultation ---
Date of Service March 10, 2024 Assessment & Plan Chart Review Chart Review: Acceptable Risk for Surgery and Patient NOT seen in Pre Admission Testing Consults Requested none ASA ASA4 Proposed Anesthesia Anesthesia Type: MAC History Surgery Operation Date: 03/10/24 17:50 Proposed Procedures p Esophagogastroduodenoscopy Fitz Byrnes MD Height/Weight Height: 5 ft 3 in Weight: 72.1 kg Allergies Allergy/AdvReac Type Severity Reaction Status Date / Time latex Allergy Severe Rash Unverified 03/09/24 13:50 Latex, Natural Rubber Allergy Severe Rash Unverified 03/09/24 13:50 Sulfa (Sulfonamide Allergy Severe Hives Unverified 03/09/24 13:50 Antibiotics) Medications Home Medications Medication Instructions Recorded Confirmed Last Taken atorvastatin 20 mg tablet 20 mg PO DAILY 03/09/24 03/09/24 03/08/24 cetirizine 10 mg tablet 10 mg PO DAILY 03/09/24 03/09/24 03/08/24 famotidine 40 mg tablet 40 mg PO BID 03/09/24 03/09/24 03/08/24 ibuprofen 200 mg tablet (Advil) 200 mg PO Q6H PRN Pain 03/09/24 03/09/24 Unknown lisinopril 20 mg tablet 20 mg PO DAILY 03/09/24 03/09/24 03/08/24 omeprazole 40 mg capsule,delayed 40 mg PO BID 03/09/24 03/09/24 03/08/24 release Active Medications Generic Name Dose Route Start Last Admin Trade Name Freq PRN Reason Stop Dose Admin Atorvastatin Calcium 20 mg 03/10/24 09:00 03/10/24 09:18 Atorvastatin 20 Mg Tab PO 04/09/24 08:59 20 mg DAILY SINDI Administration Cetirizine HCl 10 mg 03/10/24 09:00 03/10/24 09:18 Cetirizine Hcl 10 Mg Tablet PO 04/09/24 08:59 10 mg DAILY SINDI Administration Pantoprazole Sodium 40 mg/ 100 mls @ 20 mls/hr 03/09/24 10:30 03/10/24 10:53 Dextrose IV 04/08/24 10:29 8 mg/hr Q5H SINDI 20 mls/hr Administration 8 MG/HR Octreotide Acetate 500 mcg/ 100.5 mls @ 10.05 mls/hr 03/09/24 16:30 03/10/24 11:04 Sodium Chloride IV 04/08/24 16:29 50 mcg/hr .Q10H SINDI 10.1 mls/hr Administration 50 MCG/HR Sodium Chloride 1,000 mls @ 50 mls/hr 03/09/24 16:30 03/09/24 17:00 Nss IV 03/11/24 08:29 50 mls/hr .Q20H SINDI Administration Magnesium Sulfate/Dextrose 1 gm in 100 mls @ 50 mls/hr 03/10/24 09:00 03/10/24 10:53 Magnesium Sulfate / D5w IV 03/10/24 12:59 50 mls/hr Q2H SINDI Administration Lisinopril 20 mg 03/10/24 09:00 03/10/24 09:18 Lisinopril 20 Mg Tab PO 04/09/24 08:59 20 mg DAILY SINDI Administration Past Medical History Medical History Diverticulosis HLD (hyperlipidemia) HTN (hypertension) 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 Exercise / Class Metabolic Activity III < 4 Walking/Shop/Light housework Past Surgical History Surgical History History of hysterectomy History of appendectomy Past Anesthesia History No Hx of Anesthesia Complications and No Family Hx of Anesthesia Complications History of PONV No Hx of PONV and No Hx of Motion Sickness Social History Smoking Status: Never smoker Hx Alcohol Use: No Hx Substance Use: No Physical Exam Vital Signs Last Vital Signs Temp 36.9 C 03/10/24 11:24 Pulse 66 03/10/24 11:24 Resp 18 03/10/24 11:24 BP 142/60 H 03/10/24 11:24 Pulse Ox 99 03/10/24 11:24 O2 Del Method Room Air 03/10/24 11:24 Testing Laboratory Results 03/10/24 10:36 03/10/24 04:04 PT 12.5 Seconds (9.0-12.0) H 03/09/24 10:32 INR 1.2 (0.9-1.1) H 03/09/24 10:32 Urine Color Yellow 03/09/24 13:01 Urine Appearance Clear (Clear) 03/09/24 13:01 Urine pH 7.0 (4.5-7.5) 03/09/24 13:01 Ur Specific Mcdermott 1.008 (1.000-1.030) 03/09/24 13:01 Urine Protein Negative (Negative) 03/09/24 13:01 Urine Glucose (UA) Negative (Negative) 03/09/24 13:01 Urine Ketones Negative (Negative) 03/09/24 13:01 Urine Nitrite Negative (Negative) 03/09/24 13:01 Ur Leukocyte Esterase 2+ (Negative) H 03/09/24 13:01 Urine WBC (Auto) 0-5 /hpf (0-5) 03/09/24 13:01 Urine RBC (Auto) 0-2 /hpf (0-2) 03/09/24 13:01 U Hyaline Cast (Auto) 0-2 /lpf (0-2) 03/09/24 13:01 U Epithel Cells (Auto) 0-2 /hpf (0-2) 03/09/24 13:01 Urine Bacteria (Auto) None Seen (None Seen) 03/09/24 13:01 Blood Type O Positive 03/09/24 10:30 Antibody Screen NEGATIVE 03/09/24 10:30
[2024-03-10 12:19] LABS: Adenovirus F 40/41 PCR Not Detected (NotDetected); Astrovirus PCR Not Detected (NotDetected); Campylobacter PCR Not Detected (NotDetected); Cryptosporidium PCR Not Detected (NotDetected); Cyclospora cayetanensis PCR Not Detected (NotDetected); Entamoeba histolytica PCR Not Detected (NotDetected); Enteropathogenic E.coli (EPEC) Not Detected (NotDetected); Enterotoxigenic E.coli (ETEC) Not Detected (NotDetected); Giardia lamblia PCR Not Detected (NotDetected); Norovirus GI/GII PCR Not Detected (NotDetected); Plesiomonas shigelloides PCR Not Detected (NotDetected); Rotavirus A PCR Not Detected (NotDetected); Salmonella PCR Not Detected (NotDetected); Sapovirus PCR Not Detected (NotDetected); Shiga-like Toxin E.coli (STEC) Not Detected (NotDetected); Shigella/Enteroinvasive E.coli Not Detected (NotDetected); Vibrio cholerae PCR Not Detected (NotDetected); Vibrio species PCR Not Detected (NotDetected); Yersinia enterocolitica PCR Not Detected (NotDetected)
[2024-03-10 12:27] LABS: Enteroaggregative E.coli(EAEC) DETECTED (NotDetected)
[2024-03-10] MEDS ORDERED: METOPROLOL TARTRATE 1 MG/ML VIAL IV ONE (13:38)
--- NOTE | 2024-03-10 13:53 | Communication Note ---
Date of Service: March 10, 2024 Patient presents for EGD. Pt brought to [facility] 1 ,attached to monitors and in SVT ,150-170's. Rhythm strips obtained and 12 lead EKG. Pt was administered me toprolol @ 1342,5 mg iv, HR decreased to 114-120's. I have contacted Dr Simpson,pt hospitalist, and discussed pt. with him. EGD is cancelled, and pt to be brought back to her room an d Dr Simpson will have cardiology consulted.
[2024-03-10] MEDS ORDERED: hydrOXYzine HCl 25 MG TAB PO PRN (14:05)
--- NOTE | 2024-03-10 14:19 | Hospitalist Progress Note ---
Date of Service March 10, 2024 Assessment & Plan (1) Melena: Plan 78y/o F with PMHx of 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 Noticed black stools starting the night [employer] around 11PM - mostly diarrhea, approximately 3 additional BMs since the night. Did notice a slight red tinge to her stools as well, although they were mostly dark black in appearance. Never has had a blood transfusion before. Follows with Parth MONTERO. Had an EGD w/ banding x 6 performed on 03/01/[address] Yakelin Tillman. EGD also showed the following: large (>5mm) esophageal varices with no bleeding and no stigmata of recent bleeding, portal hypertensive gastropathy. She is being managed for the following: Melena, GERD w/ Esophagitis: History as per above. Hgb 11.4 on presentation. No leukocytosis, UA negative. CTAP w/ no acute abnormalities to suggest cause of bleeding. GI evaled, agrees w/ PPI and octreotide drip. Plan for EGD scope 03/10 cancelled due to pt going into SVTs in 170 during preop eval. C/w NPO, gentle IVF. Trend H/H Q6H. Transfuse for Hb < 8 or symptomatic anemia SVTs: noted during preop eval for EGD on 03/10. HR upto 170s, received metoprolol iv 5 mg x 1, HR down to 120 per Anesthesia. Pt didn't have any symptoms of chest pain/palpiation/sob. Add Jaleesa and prn metoprolol, get EKG, trop, HnH and ECHO. Cardio consult for preop clearance. Liver Cirrhosis 2/2 RUGGIERO: follows GI as OP. follow LFT. Avoid hepatotoxic meds when able. Other Chronic Medical Conditions: HTN, HLD, seasonal allergies --> Continue home meds for these specific conditions. DVT Prophylaxis: SCDs/TEDs for now in setting of active GI bleeding. Code Status: FULL CODE PCP: Clinton Ann PA-C Disposition: PCU/Telemetry Admission and Anticipated Discharge Date Admission Date: March 09, 2024 Subjective Patient was seen and examined at bedside. Patient was lying in bed, on room air, NAD, n.p.o., plan for EGD scope later in the day today. Patient reported to bowel movement after coming to the hospital, dark in color, blood-tinged noted. Patient denies abdominal pain/febrile illness/history of any cardiac conditions. I was paged by anesthesiologist as patient went into SVT during preop evaluation prior to EGD. Per anesthesiologist, patient heart rate went up to 170s, received 5 mg IV metoprolol, heart rate went down to 120s. Patient was seen and examined at bedside again, patient denies any palpitation/shortness of breath/chest pain. Patient denies any cardiac history. Will add scheduled metoprolol, add as needed metoprolol, get troponin and EKG, cardiology consult for preop clearance. Anxiety medications as needed. Physical Exam Physical Exam: Vitals signs as noted above General Appearance:Moderately built and nourished, no apparent distress Head: normocephalic, Atraumatic Eyes: normal inspection, EOMI Neck: supple, Trachea midline Respiratory/Chest: Normal breath sounds, CTA, No accessory muscle use Cardiovascular: S1, S2, No murmur Abdomen/GI:Soft, Non tender, Bowel sounds present Extremities/Musculoskeletal:normal inspection, no edema Neurologic/Psych:AAOX3, grossly no focal neurological deficits Skin: normal color, warm Results & Data Results & Data Vital Signs (Past 12 Hours) Vital Signs Temp Pulse Pulse Resp BP Pulse Ox O2 Del Method 03/10/24 13:21 36.6 C 159 H 18 147/76 H 98 Room Air 03/10/24 11:24 36.9 C 66 18 142/60 H 99 Room Air 03/10/24 09:55 56 L 03/10/24 07:31 36.7 C 97 H 18 128/75 97 Room Air 03/10/24 02:35 36.7 C 66 16 112/62 96 Room Air
--- NOTE | 2024-03-10 14:40 | Cardiology Consultation ---
Date of Consultation March 10, 2024 Assessment & Plan (1) Melena: (2) Atrial fibrillation with RVR: (3) Hypomagnesemia: Plan Assessment: 78 year old female with complex GI history admitted for melena and was to undergo endoscopy this morning for further evaluation. Initially reported to be in SVT and therefore procedure postponed. Repeat EKG demonstrates A-fib with RVR and cardiology has been asked to see patient for further recommendations. Plan: 1. Melena: -presents with one day history of black loose stools. Report that she had another today. H/H currently 11.1 and 33.1. Platelet count in 78 K/uL. -Continued management per primary and GI team. -Due to active reports of melena, and known esophageal varices, close monitoring of H/H and low platelet count, we are advising against starting any anticoagulation at this time. Risk outweighs the benefit. Spoke with patient at length with regards to the pathophysiology of A-fib and risk for thromboembolic event; however, concern that in her current state and a possible active bleed that this is contraindicated. Verbalizes understanding. -Patient currently on ice chips/sips of water. further advancement of diet as per primary team and GI. Cardiology is not planning any invasive testing at this time that would necessitate patient being NPO. further recommendations per Primary. 2. New onset Atrial fibrillation with RVR -Likely in the setting of anemia, thrombocytopenia, and possible active GI bleed. -Magnesium level well below target also a contributing factor. -Recommend increasing Metoprolol tartrate to 25mg PO BID. Just received IV Lopressor 5mg x1 dose now -[id number]-[id number] score 5;however, in the setting of an acute GI bleed, would not recommend starting anticoagulation therapy at this time as the risk is high. Discussed this with the patient. -Plan is to continue to monitor on telemetry, correct serum electrolytes and obtain echocardiogram to assess overall structure and function Hypomagnesemia: -Serum Mag 1.6. Goal to be > 2.0 -Received 2gm IV mag, will recheck mag levels Case has been discussed with Dr. Burciaga. Further recommendations regarding plan of care as per his assessment. I spent a total of 40 minutes on the date of service in preparation, delivery, documentation of the care provided to the patient excluding any time spent in the performance of separately billed services. [facility] Cardiology [facility] Supervising Physician Co-Signing Physician Notes I have personally performed a history and physical examination on the patient. I have reviewed the advance practitioner's documentation, and I agree with, and take responsibility for the plan of care. 78-year-old female with history of cirrhosis and varices status post banding presented to the emergency department due to melena. Recent variceal banding noted. Prior to procedure patient developed tachycardia initially felt to be supraventricular tachycardia, however, more likely atypical atrial flutter with rapid ventricular response. Heart rate improved with IV beta-dipika. Recommend addition of oral metoprolol 25 mg twice daily. Supplement magnesium to maintain serum concentration greater than 2.0. Supplement potassium to maintain serum concentration greater than 4.0. Continue telemetry monitoring. Echocardiogram pending. Endoscopy canceled today. Will reassess preoperative cardiovascular status in AM. Thank you for allow me to participate in the care of your patient. I spent a total of 30 minutes on the date of service in preparation, delivery, and documentation of the care provided to this patient, excluding any time spent in the performance of separately billed services. Johnny Burciaga DO, [facility] History of Present Illness Reason for Consultation: SVT Requesting Physician: Parth camara Attending Physician: Luis Miguel Simpson MD History of Present Illness HPI: Patient is a 78 year-old female with PMHx liver cirrhosis, RUGGIERO, HTN, HLD, HUONG, depression and esophagitis that presented for black stools and diarrhea. She was arranged for and EGD today and upon being taken to the preoperative area was found to be in SVT rates 156. EKG also obtained. Patient received one time dose of IV Lopressor with rates improved into the 120's. Procedure was cancelled and patient was returned to her room with request for cardiology evaluation. Patient is resting comfortably in bed at this time without complaint. She denies any chest pain, pressure, palpitations, no shortness of breath, PND, pre- syncope, syncope or edema. Patient states that just prior to going to her procedure this morning she did feel very anxious and could feel her heart racing. She feels as though that has all subsided. During time of exam, nurses had just administered another dose of IV Lopressor 5 mg. EKG was obtained at bedside which demonstrates Atrial fibrillation with RVR rates 120bpm. Of note, patient had an EGD w/ banding x 6 performed on 03/01/[address] Yakelin Tillman. EGD also showed the following: large (>5mm) esophageal varices with no bleeding and no stigmata of recent bleeding, portal hypertensive gastropathy. NA and K within normal limits. Serum Mag 1.6. Currently receiving 2 G IV Magnesium Review of telemetry demonstrates A-fib rate 110bpm Patient is for serial H/H labs and echocardiogram. Allergies Allergy/AdvReac Type Severity Reaction Status Date / Time latex Allergy Severe Rash Verified 03/10/24 13:21 Latex, Natural Rubber Allergy Severe Rash Verified 03/10/24 13:21 Sulfa (Sulfonamide Allergy Severe Hives Verified 03/10/24 13:21 Antibiotics) Home Medications Medication Instructions Recorded Confirmed Type atorvastatin 20 mg tablet 20 mg PO DAILY 03/09/24 03/09/24 History cetirizine 10 mg tablet 10 mg PO DAILY 03/09/24 03/09/24 History famotidine 40 mg tablet 40 mg PO BID 03/09/24 03/09/24 History ibuprofen 200 mg tablet (Advil) 200 mg PO Q6H PRN Pain 03/09/24 03/09/24 History lisinopril 20 mg tablet 20 mg PO DAILY 03/09/24 03/09/24 History omeprazole 40 mg capsule,delayed 40 mg PO BID 03/09/24 03/09/24 History release Patient History Medical History Diverticulosis HLD (hyperlipidemia) HTN (hypertension) 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 Surgical History History of hysterectomy History of appendectomy Social History Smoking Status: Never smoker Hx Alcohol Use: No Hx Substance Use: No Preferred Language: Bhutanese Communication Ability: Effective Layer Off Required: No Beliefs That Will Affect Care: None Current Living Situation: Family Other Information That Helps Us Care for You: No Feels Safe at Home: Yes Safety Concerns: Feels Safe At This Time Assistive Devices: None Review of Systems Review of Systems: All systems reviewed & are unremarkable except as noted in HPI & below Physical Exam Constitutional: well developed and well nourished; no acute distress and not ill appearing Neck: normal visual inspection and trachea midline Respiratory: normal respiratory effort; no respiratory distress, no labored breathing and no cough Auscultation: lungs clear to auscultation bilaterally; no crackles, no rales, no rhonchi and no wheezes Cardiovascular: Rate/Rhythm: + tachycardic and + irregularly irregular Heart Sounds: normal S1 and normal S2; no murmur Vessels: dorsalis pedis pulses present; no JVD Extremities: no edema Skin: no rashes, warm and dry Psychiatric: A+Ox3, euthymic affect Results & Data Vital Signs (Past 12 Hours) Vital Signs Temp Pulse Pulse Resp BP Pulse Ox O2 Del Method 03/10/24 14:25 36.6 C 129 H 20 143/82 H 96 Room Air 03/10/24 13:21 36.6 C 159 H 18 147/76 H 98 Room Air 03/10/24 11:24 36.9 C 66 18 142/60 H 99 Room Air 03/10/24 09:55 56 L 03/10/24 07:31 36.7 C 97 H 18 128/75 97 Room Air 03/10/24 02:35 36.7 C 66 16 112/62 96 Room Air Laboratory Results Cardiac Enzymes 03/10/24 Range/Units 04:04 AST 22 (13-39) U/L CBC 03/09/24 03/09/24 03/10/24 Range/Units 16:26 22:37 04:04 WBC 5.21 (4.8-10.8) K/ul RBC 3.28 L (4.20-5.40) M/uL Hgb 11.6 L 9.8 L 9.7 L (12.0-16.0) g/dl Hct 34.3 L 28.3 L 28.6 L (37.0-47.0) % Plt Count 78 L (130-400) K/uL 03/10/24 Range/Units 10:36 WBC (4.8-10.8) K/ul RBC (4.20-5.40) M/uL Hgb 10.3 L (12.0-16.0) g/dl Hct 29.1 L (37.0-47.0) % Plt Count (130-400) K/uL Comprehensive Metabolic Panel 03/10/24 Range/Units 04:04 Sodium 138 (136-145) mmol/L Potassium 4.0 (3.5-5.1) mmol/L Chloride 110 H (98-107) mmol/L Carbon Dioxide 22 (21-32) mmol/L BUN 22 (6-23) mg/dl Creatinine 1.12 (0.6-1.2) mg/dl Glucose 119 H (70-99(Fasting)) mg/dl Calcium 8.2 L (8.6-10.3) mg/dl Direct Bilirubin 0.4 H (0-0.2) mg/dl AST 22 (13-39) U/L ALT 19 (7-52) U/L Alkaline Phosphatase 110 H (34-104) U/L Total Protein 5.1 L (6.0-8.3) gm/dl Albumin 3.0 L (3.4-5.0) gm/dl Intake and Output 03/09/24 03/10/24 03/10/24 22:59 06:59 14:59 Intake Total 412.333 / 1321.055 288.722 / 8572.664 8852.419 / 1444.419 Balance 412.333 / 1321.055 288.722 / 0011.280 1153.419 / 1444.419 Intake: IV 172.333 / 1081.055 288.722 / 1468.708 5793.419 / 1444.419 Magnesium Sulfate / D5w 1 gm In 179.167 / 179.167 100 ml @ 50 mls/hr IV Q2H SINDI Rx#:[id number] Octreotide Acetate 500 mcg In 0 89.722 / 89.722 92.752 / 92.752 .9 % Sodium Chloride 100 ml @ 50 MCG/HR 10.05 mls/hr IV .Q10H SINDI Rx#:[id number] PANTOprazole 40 mg In Dextrose 172.333 / 371.333 199 / 371.333 100 / 100 5% Mini-B 100 ml @ 8 MG/HR 20 mls/hr IV Q5H SINDI Rx#:[id number] Sodium Chloride 0.9% 1,000 ml @ 1072.500 / 1072.500 50 mls/hr IV .Q20H SINDI Rx#: [id number] Oral 240 / 240 Other: # Unmeasured Voids 1 2 Weight 71.35 kg 72.1 kg 72.1 kg Weight Measurement Method Standing Scale Built in [facility] Patient Weight 03/11/24 06:59 Weight 72.1 kg
[2024-03-10] MEDS: METOPROLOL TARTRATE 1 MG/ML VIAL IV PRN (14:42)
[2024-03-10] MEDS: SODIUM CHLORIDE 0.9% 500 ML IV SCH (15:05)
[2024-03-10 15:14] LABS: Hematocrit (blood only) 33.1 % (37.0-47.0); Hemoglobin 11.1 g/dl (12.0-16.0)
--- NOTE | 2024-03-10 15:32 | Electrocardiogram Report ---
Test Reason : Blood Pressure : */* mmHG Vent. Rate : 156 BPM Atrial Rate : 159 BPM P-R Int : * ms QRS Dur : 106 ms QT Int : 326 ms P-R-T Axes : * -28 153 degrees QTcB Int : 525 ms Atrial fibrillation with rapid ventricular response Anteroseptal infarct (cited on or before 02-May-2014) Abnormal ECG When compared with ECG of 09-Mar-2024 10:14, (unconfirmed) QRS duration has increased ST now depressed in Lateral leads T wave inversion now evident in Inferior leads T wave inversion now evident in Lateral leads Atrial fibrillation has replaced sinus rhythm Confirmed by Cooper Carrion [id number] on 03/10/2024 3:32:03 PM Referred By: REFERRED SELF Confirmed By: Cooper Carrion
[2024-03-10] MEDS: METOPROLOL TARTRATE 25 MG TAB PO ONE ×2 (16:23→16:25)
[2024-03-10] MEDS: METOPROLOL TARTRATE 25 MG TAB PO SCH ×2 (16:26→21:02)
--- NOTE | 2024-03-11 12:08 | Cardiology Progress Note ---
<Statement entered by Adele Madrigal, - 03/11/24 15:54> I have reviewed the advanced practitioner's documentation and agree with the plan of care. I accept the responsibility for the associated risk. Pt seen in cardiology f/u due to pAF newly found Pt converted to SR late last night; she is tolerating her slower heart rates She was admitted due to GIB; she follows with hepatolgy as an outpatient and is due to have more banding in a few weeks. Her H/H is stable today Would recommend changing lopressor to toprol 25mg daily given the Sinus bradycardia No AC given the anemia/GIB I discussed with the patient about purchasing a Kids Calendar mobile so she can monitor her cardiac rhythms at home to ensure no recurrent pAF given that she is not on AC No further in patient cardiac recommendations or testing at this juncture Please re-consult as necessary Pt will need 1 month EP f/u upon discharge I discussed the patient with the hospitalist on the phone and he agreed with my recommendations Date of Service March 11, 2024 Assessment & Plan (1) Atrial fibrillation with RVR: (2) Melena: (3) Hypomagnesemia: Plan Assessment: 78 year old female with complex GI history admitted for melena and was to undergo endoscopy this morning for further evaluation. Initially reported to be in SVT and therefore procedure postponed. Repeat EKG demonstrates A-fib with RVR and cardiology has been asked to see patient for further recommendations. Plan: -HR now trending on the low side, will switch to Toprol 25 mg daily -BP trending on the low side -remains anemic but H/H stable -converted back to NSR overnight at approximately 2200 -monitor and replace electrolytes as necessary, recommend K > 4 and Mg > 2 -ECHO indicated normal EF with no significant valvular disease -[id number] score 5;however, in the setting of an acute GI bleed, would not recommend starting anticoagulation therapy at this time as the risk is high - this is the 1st event and possibly lone event - reviewed using a Kids Calendar Mobile with her for monitoring at home, if she were to develop any future atrial dysrhythmias when need more strongly consider placing her on therapeutic anticoagulation - she does have another upcoming endoscopy in 3 weeks for additional banding procedure - optimized from a cardiac standpoint for endoscopy procedure - will need follow up outpatient Cardiology Clinic Case discussed with Dr. Madrigal, please see her attestation for additional recommendations [facility] Admission and Anticipated Discharge Date Admission Date: March 09, 2024 Subjective 78 year old female seen in cardiology follow up in regard to A Fib RVR in the setting of acute anemia/GI bleed. was having a high level of anxiety when she was preparing for her EGD which is abnormal for her and may have contributed to the palpitations and tachycardia. feeling significantly better today with no outward signs and symptoms of bleed drink to report. Review of Systems Review of Systems: All systems reviewed & are unremarkable except as noted in Subjective Physical Exam Constitutional: WD/WN, vitals as above well developed and well nourished; no acute distress Respiratory: normal respiratory effort, lungs clear to auscultation Cardiovascular: Rate/Rhythm: regular rhythm and + bradycardic Heart Sounds: normal S1 and normal S2 Vessels: no JVD Gastrointestinal (Abdomen): normal bowel sounds, soft, nontender, no hepatosplenomegaly Results & Data Vital Signs (Past 12 Hours) Vital Signs Temp Pulse Pulse Pulse Resp BP Pulse Ox 03/11/24 10:53 36.5 C 51 L 18 99/63 L 97 03/11/24 09:18 54 L 97/64 L 03/11/24 07:23 36.8 C 56 L 17 96/56 L 98 03/11/24 06:43 51 L 03/11/24 02:48 36.8 C 55 L 16 95/50 L 95 O2 Del Method 03/11/24 10:53 Room Air 03/11/24 09:18 03/11/24 07:23 Room Air 03/11/24 06:43 03/11/24 02:48 Room Air Laboratory Results Laboratory Results WBC 5.21 K/ul (4.8-10.8) 03/10/24 04:04 RBC 3.28 M/uL (4.20-5.40) L 03/10/24 04:04 Hgb 11.1 g/dl (12.0-16.0) L 03/10/24 14:43 Hct 33.1 % (37.0-47.0) L 03/10/24 14:43 MCV 87.2 fL (80.0-100.0) 03/10/24 04:04 MCH 29.6 pg (25.0-34.0) 03/10/24 04:04 MCHC 33.9 g/dL (32.0-36.0) 03/10/24 04:04 RDW Std Deviation 50.5 fL (36.4-46.3) H 03/10/24 04:04 RDW Coeff of Harsh 15.9 % (11.5-14.5) H 03/10/24 04:04 Plt Count 78 K/uL (130-400) L 03/10/24 04:04 MPV 10.0 fL (9.4-12.4) 03/10/24 04:04 Immature Gran % (Auto) 0.4 % 03/09/24 10:32 Neut % (Auto) 77.1 % 03/09/24 10:32 Lymph % (Auto) 12.3 % 03/09/24 10:32 [place] % (Auto) 7.6 % 03/09/24 10:32 Eos % (Auto) 2.0 % 03/09/24 10:32 Baso % (Auto) 0.6 % 03/09/24 10:32 Neut # (Auto) 8.01 K/uL (1.40-6.50) H 03/09/24 10:32 Lymph # (Auto) 1.28 K/uL (1.20-3.40) 03/09/24 10:32 [place] # (Auto) 0.79 K/uL (0.11-0.59) H 03/09/24 10:32 Eos # (Auto) 0.21 K/uL (0.00-0.50) 03/09/24 10:32 Baso # (Auto) 0.06 K/uL (0.00-0.20) 03/09/24 10:32 Immature Gran # (Auto) 0.04 K/uL (0.01-0.20) 03/09/24 10:32 Platelet Estimate Decreased (Normal) L 03/10/24 04:04 PT 12.5 Seconds (9.0-12.0) H 03/09/24 10:32 INR 1.2 (0.9-1.1) H 03/09/24 10:32 Sodium 138 mmol/L (136-145) 03/10/24 04:04 Potassium 4.0 mmol/L (3.5-5.1) 03/10/24 04:04 Chloride 110 mmol/L (98-107) H 03/10/24 04:04 Carbon Dioxide 22 mmol/L (21-32) 03/10/24 04:04 Anion Gap 6 (3-11) 03/10/24 04:04 BUN 22 mg/dl (6-23) 03/10/24 04:04 Creatinine 1.12 mg/dl (0.6-1.2) 03/10/24 04:04 Est Cr Clr Drug Dosing 40.5 ml/min 03/10/24 04:04 Est GFR ( Amer) 55.3 ml/min 03/10/24 04:04 Est GFR (Non-Af Amer) 47.7 ml/min 03/10/24 04:04 BUN/Creatinine Ratio 19.6 (10-20) 03/10/24 04:04 Glucose 119 mg/dl (70-99(Fasting)) H 03/10/24 04:04 Calcium 8.2 mg/dl (8.6-10.3) L 03/10/24 04:04 Phosphorus 3.6 mg/dl (2.5-4.9) 03/10/24 04:04 Magnesium 1.8 mg/dl (1.7-2.4) 03/10/24 20:18 Total Bilirubin 1.4 mg/dl (0.2-1.0) H 03/10/24 04:04 Direct Bilirubin 0.4 mg/dl (0-0.2) H 03/10/24 04:04 AST 22 U/L (13-39) 03/10/24 04:04 ALT 19 U/L (7-52) 03/10/24 04:04 Alkaline Phosphatase 110 U/L (34-104) H 03/10/24 04:04 Troponin I High Sens 7.4 pg/ml (0-14) 03/10/24 14:43 Total Protein 5.1 gm/dl (6.0-8.3) L 03/10/24 04:04 Albumin 3.0 gm/dl (3.4-5.0) L 03/10/24 04:04 Globulin 2.6 gm/dl (2.5-4.0) 03/09/24 10:32 Albumin/Globulin Ratio 1.4 (0.9-2) 03/09/24 10:32 Lipase 11 U/L (11-82) 03/09/24 10:32 Urine Color Yellow 03/09/24 13:01 Urine Appearance Clear (Clear) 03/09/24 13:01 Urine pH 7.0 (4.5-7.5) 03/09/24 13:01 Ur Specific [place] 1.008 (1.000-1.030) 03/09/24 13:01 Urine Protein Negative (Negative) 03/09/24 13:01 Urine Glucose (UA) Negative (Negative) 03/09/24 13:01 Urine Ketones Negative (Negative) 03/09/24 13:01 Urine Blood Trace (Negative) H 03/09/24 13:01 Urine Nitrite Negative (Negative) 03/09/24 13:01 Urine Bilirubin Negative (Negative) 03/09/24 13:01 Urine Urobilinogen Negative (Negative) 03/09/24 13:01 Ur Leukocyte Esterase 2+ (Negative) H 03/09/24 13:01 Urine WBC (Auto) 0-5 /hpf (0-5) 03/09/24 13:01 Urine RBC (Auto) 0-2 /hpf (0-2) 03/09/24 13:01 U Hyaline Cast (Auto) 0-2 /lpf (0-2) 03/09/24 13:01 U Epithel Cells (Auto) 0-2 /hpf (0-2) 03/09/24 13:01 Urine Bacteria (Auto) None Seen (None Seen) 03/09/24 13:01 Stl C. cayetanensis PCR Not Detected (NotDetected) 03/10/24 10:25 Stool Rotavirus A PCR Not Detected (NotDetected) 03/10/24 10:25 Stl Adenov F 40/41 PCR Not Detected (NotDetected) 03/10/24 10:25 Stool Astrovirus (PCR) Not Detected (NotDetected) 03/10/24 10:25 Stool Campylobacter PCR Not Detected (NotDetected) 03/10/24 10:25 Stl C. diff Tox B Gene Negative Cdiff Gene (Neg) 03/10/24 10:25 Stool Cryptosporidium PCR Not Detected (NotDetected) 03/10/24 10:25 Stl E.coli Shiga Tox PCR Not Detected (NotDetected) 03/10/24 10:25 Stl Enterotoxigenic E PCR Not Detected (NotDetected) 03/10/24 10:25 Stool EPEC (PCR) Not Detected (NotDetected) 03/10/24 10:25 Stool EAEC (PCR) DETECTED (NotDetected) A* 03/10/24 10:25 Stl E. histolytica PCR Not Detected (NotDetected) 03/10/24 10:25 Stool Giardia Lamblia PCR Not Detected (NotDetected) 03/10/24 10:25 Stool Salmonella PCR Not Detected (NotDetected) 03/10/24 10:25 Stool Sapovirus (PCR) Not Detected (NotDetected) 03/10/24 10:25 Stl P. shigelloides PCR Not Detected (NotDetected) 03/10/24 10:25 Stl Shigella/EIEC PCR Not Detected (NotDetected) 03/10/24 10:25 St Y.enterocolitica PCR Not Detected (NotDetected) 03/10/24 10:25 Stool Vibrio (PCR) Not Detected (NotDetected) 03/10/24 10:25 Stl Vibrio cholerae PCR Not Detected (NotDetected) 03/10/24 10:25 Stl Norovirus GI/GII PCR Not Detected (NotDetected) 03/10/24 10:25 Blood Type O Positive 03/09/24 10:30 Antibody Screen NEGATIVE 03/09/24 10:30 Crossmatch See Detail 03/09/24 10:30 Impressions Abdomen/Pelvis CT 03/09/24 10:12 CT abd pelvis IV con only CLINICAL HISTORY: abd pain, GIB TECHNIQUE: Helical axial images of the abdomen and pelvis were obtained and displayed. Automated dose lowering techniques and/or adjustment according to patient size were utilized for this exam. This exam was performed with intravenous contrast. CT DOSE: 970.44 mGy.cm COMPARISON: Comparison is made to abdomen radiograph 05/02/2014 FINDINGS: Lower chest: Bibasilar atelectasis versus scarring is seen. Liver: Nodular contour of the liver is seen compatible with cirrhosis. Gallbladder and biliary tree: No calcified gallstones. Normal caliber wall. No intra- or extrahepatic biliary ductal dilation. Pancreas: Unremarkable, no focal lesions. Spleen: Splenomegaly is noted, the spleen measures 15.6 mm. Adrenals: Unremarkable. Kidneys and ureters: Renal cysts are seen. Bladder: Unremarkable. Reproductive organs: Unremarkable. Bowel: Diverticulosis is seen without evidence of diverticulitis. Patient is status post appendectomy. There is a small hiatal hernia. Lymph nodes Retroperitoneal: Subcentimeter lymph nodes are noted. Pelvic: Unremarkable. Mesenteric: Unremarkable. Peritoneum: Ascites is seen. Vessels: Atherosclerotic calcifications are seen. Perigastric and paraesophageal varices are seen. Abdominal wall: Unremarkable. Bones: Degenerative changes in the visualized spine. IMPRESSION: 1. No acute abnormalities are seen to suggest etiology of gastrointestinal bleed. 2. Cirrhosis and stigmata of portal hypertension. ACT 112: Negative or not required by law. Electronically signed by: Truong Tinajero M.D. 03/09/2024 2:25 PM Medications Administered Current Inpatient Medications Atorvastatin Calcium (Atorvastatin 20 Mg Tab) 20 mg PO DAILY SINDI Stop: 04/09/24 08:59 Last Admin: 03/11/24 09:20 Dose: 20 mg Cetirizine HCl (Cetirizine Hcl 10 Mg Tablet) 10 mg PO DAILY SINDI Stop: 04/09/24 08:59 Last Admin: 03/11/24 09:20 Dose: 10 mg Hydroxyzine HCl (Hydroxyzine Hcl 25 Mg Tab) 25 mg PO TID PRN PRN Reason: Anxiety Stop: 04/09/24 14:04 Pantoprazole Sodium 40 mg/ (Dextrose) 100 mls @ 20 mls/hr IV Q5H SINDI Stop: 04/08/24 10:29 Last Admin: 03/11/24 10:40 Dose: 8 mg/hr, 20 mls/hr Octreotide Acetate 500 mcg/ (Sodium Chloride) 100.5 mls @ 10.05 mls/hr IV .Q10H SINDI Stop: 04/08/24 16:29 Last Admin: 03/11/24 06:46 Dose: 50 mcg/hr, 10.1 mls/hr Sodium Chloride (Nss) 1,000 mls @ 65 mls/hr IV .[id number] SINDI Stop: 03/12/24 11:04 Last Infusion: 03/11/24 05:50 Dose: Infused Lisinopril (Lisinopril 20 Mg Tab) 20 mg PO DAILY SINDI Stop: 04/09/24 08:59 Last Admin: 03/11/24 09:19 Dose: Not Given Metoprolol Tartrate (Metoprolol Tartrate 1 Mg/Ml Vial) 5 mg IV Q4 PRN PRN Reason: tachycardia Stop: 04/09/24 15:59 Last Admin: 03/10/24 14:42 Dose: 5 mg Metoprolol Tartrate (Metoprolol Tartrate 25 Mg Tab) 25 mg PO BID [facility] Stop: 04/09/24 20:59 Last Admin: 03/11/24 09:19 Dose: Not Given Ondansetron HCl (Ondansetron Inj 2 Mg/Ml 2 Ml Vial) 4 mg IV Q6H PRN PRN Reason: Nausea Stop: 04/08/24 16:18
--- NOTE | 2024-03-11 13:27 | Gastroenterology Progress Note ---
Date of Service March 11, 2024 Assessment & Plan (1) Melena: Plan: Patient with with cirrhosis of the liver who had a recent banding done on the I suspect that the cause of the melena was the development of an ulcer at the site of banding she states she had 6 bands placed and frequently you get ulceration post banding of note she has not had any bowel movement in the last 24 hours her last H&H was stable at the current time I would 1. Continue with PPI and complete octreotide 2. Monitor H&H every 12 3. If there is any evidence of any bleeding would do repeat EGD but would not dickson to it as may displace the bands Thank you for allowing us to take part in the care of your patient will continue to follow her with you Admission and Anticipated Discharge Date Admission Date: March 09, 2024 Subjective Patient is lying comfortably in the bed without any active complaints she denies any dysphagia or reflux nausea vomiting or abdominal pain of note she states that she has not had a neuropathy bowel movement in the last 24 hours she is quite stable and she states she feels well currently Review of Systems Review of Systems: 10 point review of systems was done Physical Exam Constitutional: WD/WN, vitals as above Respiratory: normal respiratory effort, lungs clear to auscultation Cardiovascular: RRR, no murmur, no edema Gastrointestinal (Abdomen): normal bowel sounds, soft, nontender, no hepatosplenomegaly Results & Data Results & Data Vital Signs (Past 12 Hours) Vital Signs Temp Pulse Pulse Pulse Resp BP Pulse Ox 03/11/24 10:53 36.5 C 51 L 18 99/63 L 97 03/11/24 09:18 54 L 97/64 L 03/11/24 07:23 36.8 C 56 L 17 96/56 L 98 03/11/24 06:43 51 L 03/11/24 02:48 36.8 C 55 L 16 95/50 L 95 O2 Del Method 03/11/24 10:53 Room Air 03/11/24 09:18 03/11/24 07:23 Room Air 03/11/24 06:43 03/11/24 02:48 Room Air PG Care Time/CCT Total # of Minutes Spent Total Time Spent with Patient: Total time spent is greater than 50% in coordination of care (as documented) at patient's floor/unit and/or counseling patient: Coding Level of Care Code 96486 SUB INP/OBS CARE 07/29MIN Diagnoses Melena K92.1
[2024-03-11 14:46] LABS: Hematocrit (blood only) 29.2 % (37.0-47.0); Hemoglobin 9.9 g/dl (12.0-16.0)
--- NOTE | 2024-03-11 16:19 | Hospitalist Progress Note ---
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 Noticed black stools starting the night [employer] around 11PM - mostly diarrhea, approximately 3 additional BMs since the night. Did notice a slight red tinge to her stools as well, although they were mostly dark black in appearance. Never has had a blood transfusion before. Follows with [facility]TERO. Had an EGD w/ banding x 6 performed on 03/01/[address] Yakelin Tillman. EGD also showed the following: large (>5mm) esophageal varices with no bleeding and no stigmata of recent bleeding, portal hypertensive gastropathy. She is being managed for the following: Melena, GERD w/ Esophagitis: History as per above. Hgb 11.4 on presentation. No leukocytosis, UA negative. CTAP w/ no acute abnormalities to suggest cause of bleeding. GI evaled, agrees w/ PPI and octreotide drip. Plan for EGD scope 03/10 cancelled due to pt going into SVTs in 170 during preop eval. Last bowel movement 03/10 morning. Monitor H&H every 12 hours. Hemoglobin stable around 10. Possible plan for outpatient EGD, if any evidence of further bleeding, possible inpatient EGD. Transfuse for Hb < 8 or symptomatic anemia A-fib RVR: noted during preop eval for EGD on 03/10. Pt didn't have any symptoms of chest pain/palpiation/sob. status post metoprolol doses. Currently NSR. ECHO w/ EF of 60-65%, mild conc LVH, LV systolic fxn wnl. Cardiology evaluated, Toprol, outpatient cardiology follow-up, evaluation for anticoagulation upon outpatient visit. Liver Cirrhosis 2/2 RUGGIERO: follows GI as OP. follow LFT. Avoid hepatotoxic meds when able. Other Chronic Medical Conditions: HTN, HLD, seasonal allergies --> Continue home meds for these specific conditions. DVT Prophylaxis: SCDs/TEDs for now in setting of active GI bleeding. Code Status: FULL CODE PCP: Clinton Ann PA-C Disposition: PCU/Telemetry Admission and Anticipated Discharge Date Admission Date: March 09, 2024 Subjective Patient was seen and examined at bedside. Patient was lying in bed, on room air, NAD, resting comfortably Patient reported no further bowel movement after last bowel movement yesterday. Patient denies abdominal pain/febrile illness/history of any cardiac conditions. Plan to advance diet as tolerated. Plan to monitor hemoglobin closely. Physical Exam Physical Exam: General Appearance:Moderately built and nourished, no apparent distress Head: normocephalic, Atraumatic Eyes: normal inspection, EOMI Neck: supple, Trachea midline Respiratory/Chest: Normal breath sounds, CTA, No accessory muscle use Cardiovascular: regular rate, S1, S2, No murmur Abdomen/GI:Soft, Non tender, Bowel sounds present Extremities/Musculoskeletal:normal inspection, no edema Neurologic/Psych:AAOX3, grossly no focal neurological deficits Skin: normal color, warm Results & Data Results & Data Vital Signs (Past 12 Hours) Vital Signs Temp Pulse Pulse Pulse Resp BP Pulse Ox 03/11/24 15:15 36.8 C 54 L 17 115/65 97 03/11/24 14:32 62 03/11/24 10:53 36.5 C 51 L 18 99/63 L 97 03/11/24 09:18 54 L 97/64 L 03/11/24 07:23 36.8 C 56 L 17 96/56 L 98 03/11/24 06:43 51 L O2 Del Method 03/11/24 15:15 Room Air 03/11/24 14:32 03/11/24 10:53 Room Air 03/11/24 09:18 03/11/24 07:23 Room Air 03/11/24 06:43
--- NOTE | 2024-03-11 21:57 | Electrocardiogram Report ---
Test Reason : Blood Pressure : */* mmHG Vent. Rate : 70 BPM Atrial Rate : 70 BPM P-R Int : 140 ms QRS Dur : 88 ms QT Int : 564 ms P-R-T Axes : 43 -21 80 degrees QTcB Int : 609 ms Normal sinus rhythm Anteroseptal infarct (cited on or before 02-May-2014) Prolonged QT Abnormal ECG When compared with ECG of 02-May-2014 09:41, Questionable change in initial forces of Anterior leads QT has lengthened Confirmed by Natanael Joy ([id number]) on 03/11/2024 9:57:08 PM Referred By: REFERRED SELF Confirmed By: Natanael Joy
[2024-03-12 05:42] LABS: Basophils # (auto) 0.04 K/uL (0.00-0.20); Basophils % (auto) 0.8 %; Eosinophils # (auto) 0.31 K/uL (0.00-0.50); Eosinophils % (auto) 6.4 %; Hematocrit (blood only) 27.4 % (37.0-47.0); Hemoglobin 9.2 g/dl (12.0-16.0); Immature Granulocytes # (auto) 0.01 K/uL (0.01-0.20); Immature Granulocytes % (auto) 0.2 %; Lymphocytes # (auto) 0.72 K/uL (1.20-3.40); Mean Corpuscular Hemoglobin 29.2 pg (25.0-34.0); Mean Corpuscular Hgb Conc 33.6 g/dL (32.0-36.0); Mean Platelet Volume 10.2 fL (9.4-12.4); Monocytes # (auto) 0.47 K/uL (0.11-0.59); Monocytes % (auto) 9.8 %; Neutrophils # (auto) 3.26 K/uL (1.40-6.50); Neutrophils % (auto) 67.8 %; Platelet Count 81 K/uL (130-400); RDW Coefficient of Variation 15.8 % (11.5-14.5); RDW Standard Deviation 50.2 fL (36.4-46.3); Red Blood Count 3.15 M/uL (4.20-5.40); White Blood Count 4.81 K/ul (4.8-10.8)
[2024-03-12 06:03] LABS: BUN Creatinine Ratio 15.4 (10-20); Calcium 7.6 mg/dl (8.6-10.3); Est GFR (African American) 60.4 ml/min; Est GFR (Non-African American) 52.1 ml/min; Magnesium 1.5 mg/dl (1.7-2.4); Phosphorus 2.3 mg/dl (2.5-4.9); Potassium 3.8 mmol/L (3.5-5.1)
[2024-03-12 07:43] VITALS: RESP 17; O2SAT 95
[2024-03-12] MEDS: METOPROLOL SUCC 25MG EXT REL TAB PO SCH (09:27)
[2024-03-12] MEDS ORDERED: POTASSIUM PHOS 3 MMOL/1 ML INFUSION IV STA (09:29)
[2024-03-12] MEDS: MAGNESIUM SULFATE / D5W 1 GM/100 ML BAG IV SCH (10:46)
[2024-03-12] MEDS: POTASSIUM PHOSPHATE 15 MMOL in SODIUM CHLORIDE 0.9% 250 ML IV ONE (10:46)
[2024-03-12] MEDS: PANTOprazole 40 MG in SYRINGE 0 ML IV SCH (11:04)
[2024-03-12 11:10] VITALS: BP 105/65; TEMP 98.4
--- NOTE | 2024-03-12 11:38 | Gastroenterology Progress Note ---
Date of Service March 12, 2024 Assessment & Plan (1) Melena: Plan: Patient has had no further episodes of GI bleeding over the last 48 hours she has had 1 bowel movement of note she had esophageal banding with 6 bands placed approximately about 8 to 9 days ago she may have developed an ulceration from that but it appears that she is not having any more bleeding she is scheduled for a repeat banding in about 2 weeks time with her primary forest pathologist at the current time I would #1 follow H&H serially and if stable may be okay for discharge 2. Would continue on PPI twice daily (2) 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: Plan: Patient has cirrhosis she is followed by her forest pathologist as an outpatient and she has had 1 episode of banding done with plan to have repeat banding in 2 weeks time I would have her follow-up with her primary GI as an outpatient for further follow-up Admission and Anticipated Discharge Date Admission Date: March 09, 2024 Subjective Patient is lying comfortably in the bed without any complaints she denies any dysphagia or reflux nausea vomiting or abdominal pain she states she had 1 bowel movement today this morning which was brown the last bowel movement prior to that was 2 days ago on the hold feeling well Review of Systems Review of Systems: A 10 point review of systems was done Physical Exam Constitutional: WD/WN, vitals as above Respiratory: normal respiratory effort, lungs clear to auscultation Cardiovascular: RRR, no murmur, no edema Gastrointestinal (Abdomen): normal bowel sounds, soft, nontender, no hepatosplenomegaly Results & Data Results & Data Vital Signs (Past 12 Hours) Vital Signs Temp Pulse Pulse Resp BP Pulse Ox O2 Del Method 03/12/24 11:09 36.9 C 60 17 105/65 95 Room Air 03/12/24 07:42 36.7 C 52 L 17 105/51 L 95 Room Air 03/12/24 07:33 48 L 03/12/24 02:40 36.8 C 54 L 18 102/61 94 Room Air PG Care Time/CCT Total # of Minutes Spent Total Time Spent with Patient: Total time spent is greater than 50% in coordination of care (as documented) at patient's floor/unit and/or counseling patient: Coding Level of Care Code 55459 SUB INP/OBS CARE 2/35MIN History Expanded Problem Focused Exam Expanded Problem Focused Medical Decision Making Moderate Complexity Diagnoses Melena K92.1 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 K75.81; K74.60
[2024-03-12 13:31] LABS: Hematocrit (blood only) 33.5 % (37.0-47.0); Hemoglobin 11.5 g/dl (12.0-16.0)
--- NOTE | 2024-03-12 13:57 | Discharge Summary ---
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 History obtained from patient and associated chart review. Patient seen at bedside with Dr. Serra. Noticed black stools starting last night around 11PM - mostly diarrhea, approximately 3 additional BMs since last night. Last BM around 11AM this morning. Did notice a slight red tinge to her stools as well, although they were mostly dark black in appearance. No nausea/vomiting. Never has had a blood transfusion before. Follows with [facility] MON[facility]. Had an EGD w/ banding x 6 performed on 03/01/[address] Yakelin Tillman. EGD also showed the following: large (>5mm) esophageal varices with no bleeding and no stigmata of recent bleeding, portal hypertensive gastropathy. Most recent colonoscopy on 12/07/22 with diverticulosis, internal hemorrhoids. No specimens were collected. Admission Exam Per Admitting Provider General Appearance:Moderately built and nourished, no apparent distress Head: normocephalic, Atraumatic Eyes: normal inspection, EOMI Neck: supple, Trachea midline Respiratory/Chest: Normal breath sounds, CTA, No accessory muscle use Cardiovascular: S1, S2, No murmur Abdomen/GI:Soft, Non tender, Bowel sounds present Extremities/Musculoskeletal:normal inspection, 1+edema--chronic per patient Neurologic/Psych:AAOX3, grossly no focal neurological deficits Skin: normal color, warm Principal Diagnosis Melena, likely UGI bleed A-fib RVR 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 Discharge Exam General Appearance:Moderately built and nourished, no apparent distress Head: normocephalic, Atraumatic Eyes: normal inspection, EOMI Neck: supple, Trachea midline Respiratory/Chest: Normal breath sounds, CTA, No accessory muscle use Cardiovascular: regular rate, S1, S2, No murmur Abdomen/GI:Soft, Non tender, Bowel sounds present Extremities/Musculoskeletal:normal inspection, no edema Neurologic/Psych:AAOX3, grossly no focal neurological deficits Skin: normal color, warm Discharge Data Allergies Allergy/AdvReac Type Severity Reaction Status Date / Time latex Allergy Severe Rash Verified 03/10/24 13:21 Latex, Natural Rubber Allergy Severe Rash Verified 03/10/24 13:21 Sulfa (Sulfonamide Allergy Severe Hives Verified 03/10/24 13:21 Antibiotics) Consultations 03/09/24 14:17 Consult Gastroenterology Routine 03/09/24 14:34 ED Decision to Admit Stat 03/10/24 14:03 Consult Cardiology Routine Procedures Performed Operation Date: 03/10/24 17:50 <No data on this case meets the specified criteria> Ordered Studies 03/09/24 10:12 CT Abd and Pelvis [CT abd pelvis IV con only] Stat Hospital Course (1) Melena: Plan 78y/o F with PMHx of 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 Noticed black stools starting the night [employer] around 11PM - mostly diarrhea, approximately 3 additional BMs since the night. Did notice a slight red tinge to her stools as well, although they were mostly dark black in appearance. Never has had a blood transfusion before. Follows with [facility] MONTERO. Had an EGD w/ banding x 6 performed on 03/01/[address] Yakelin Tillman. EGD also showed the following: large (>5mm) esophageal varices with no bleeding and no stigmata of recent bleeding, portal hypertensive gastropathy. She was managed for the following: Melena, GERD w/ Esophagitis: History as per above. Hgb 11.4 on presentation. No leukocytosis, UA negative. CTAP w/ no acute abnormalities to suggest cause of bleeding. GI evaled, appreciate recs. Patient moved bowels today, brown and formed. No blood or dark. H&H is stable around 10. Patient to avoid NSAIDs, continue pantoprazole 40 Mg twice daily, follow-up with GI within 1 to 2-week time upon discharge. A-fib RVR: noted during preop eval for EGD on 03/10. Pt didn't have any symptoms of chest pain/palpiation/sob. status post metoprolol doses. Currently NSR. ECHO w/ EF of 60-65%, mild conc LVH, LV systolic fxn wnl. Cardiology evaluated, Estela, outpatient cardiology follow-up, evaluation for anticoagulation upon outpatient visit. Liver Cirrhosis 2/2 RUGGIERO: follows GI as OP. follow LFT. Avoid hepatotoxic meds when able. Other Chronic Medical Conditions: HTN, HLD, seasonal allergies --> Continue home meds for these specific conditions. DVT Prophylaxis: SCDs/TEDs for now in setting of active GI bleeding. Code Status: FULL CODE PCP: Clinton Ann PA-C Disposition: PCU/Telemetry Patient being discharged home with following instruction at the point of discharge: Follow-up with your primary care physician within a week time and likely you will need labs CBC/CMP/magnesium/phosphorus. You were evaluated for likely upper GI bleed while inpatient, you will be discharged on pantoprazole 40 mg twice a day. Avoid NSAIDs. 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 If with further bloody/black stool, contact your gastroenterology office or emergency immediately. You were also diagnosed with atrial fibrillation with RVR while inpatient. Cardiology evaluated you, you have been started on metoprolol. Will hold your lisinopril for next few days due to your blood pressure on the lower side while in hospital, measure your blood pressure twice a day/maintain a log to take to your PCP office, visit your PCP office within a week time for possibility of resuming/decreasing dose of your lisinopril. You will need outpatient cardiology visit, follow-up in 2 to 4 weeks time, coordinate with your PCP office to set up the referral. Further discussion regarding need for blood thinner/anticoagulation needed during your cardiology visit. Take your medications as prescribed. Please make sure that you are able to get your medications today by calling your pharmacy before you leave the hospital so that your treatment continuity is not broken. Home Health Attestation I certify that this patient is under my care and that I, or a physicians resident assistant cna working with me, had a face to-face encounter that meets the home health [id number] encounter requirements with this patient. The encounter with the patient was in whole, or in part, for the following medical condition, which is the primary reason for home health care (list medical condition): I certify that, based on my findings, the following services are medically necessary home health services: My clinical findings support the need for the above services because: Further, I certify that my clinical findings support that this patient is homebound (i.e. absences from home require considerable and taxing effort and are for medical reasons or evangelical services or infrequently or of short duration when for other reasons) because: Certification for Home Health Services: Based on the above findings, I certify that this patient is confined to the home and needs intermittent halfway care, physical therapy and/or speech therapy or continues to need occupational therapy. The patient is under my care, and I have initiated the establishment of the plan of care. This patient will be followed by a physician who will periodically review the plan of care. Total Time Total Time Spent Total Time Spent (In Minutes): 45 Discharge Plan Discharge Items Patient Disposition: Home - Self-Care Reason For Visit: MELENA Discharge Diagnosis: Melena, likely UGI bleed A-fib RVR 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 Activity: Resume your previous activity Non-emergency contact: Primary Care Provider Call non-emergency contact if: you have any medication questions and your symptoms worsen Follow-up/Referrals: Clinton Ann PA-C [Primary Care Provider] - Diet: Heart Healthy Diet Texture: Dental soft (bite-sized) Addtl Attending Provider Instructions: Follow-up with your primary care physician within a week time and likely you will need labs CBC/CMP/magnesium/phosphorus. You were evaluated for likely upper GI bleed while inpatient, you will be discharged on pantoprazole 40 mg twice a day. Avoid NSAIDs. 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 If with further bloody/black stool, contact your gastroenterology office or emergency immediately. You were also diagnosed with atrial fibrillation with RVR while inpatient. Cardiology evaluated you, you have been started on metoprolol. Will hold your lisinopril for next few days due to your blood pressure on the lower side while in hospital, measure your blood pressure twice a day/maintain a log to take to your PCP office, visit your PCP office within a week time for possibility of resuming/decreasing dose of your lisinopril. You will need outpatient cardiology visit, follow-up in 2 to 4 weeks time, coordinate with your PCP office to set up the referral. Further discussion regarding need for blood thinner/anticoagulation needed during your cardiology visit. Take your medications as prescribed. Please make sure that you are able to get your medications today by calling your pharmacy before you leave the hospital so that your treatment continuity is not broken. Pending Studies at Discharge: No Stand-Alone Forms: My [facility], Smoking Cessation Medications and DC Order Prescriptions: New metoprolol succinate 25 mg Tablet Extended Release 24 Hr 25 mg PO QAM Qty: 30 0RF pantoprazole 40 mg tablet,delayed release (DR/EC) 40 mg PO BID Qty: 60 0RF magnesium oxide 400 mg magnesium tablet 400 mg PO DAILY Qty: 30 0RF Continued atorvastatin 20 mg Tablet 20 mg PO DAILY cetirizine 10 mg tablet 10 mg PO DAILY famotidine 40 mg tablet 40 mg PO BID Held lisinopril 20 mg tablet 20 mg PO DAILY Hold Instructions: Resume on 03/17/24. Discontinued omeprazole 40 mg capsule,delayed release(DR/EC) 40 mg PO BID ibuprofen [Advil] 200 mg Tablet 200 mg PO Q6H PRN (Reason: Pain) Discharge Orders: Discharge Order (Routine); Ordered 03/12/24 Ordered By: Luis Miguel Simpson Admission Data Admit Date/Time: 03/09/24 15:00 Attending Provider: Luis Miguel Simpson Admit Provider: Sai Serra Primary Care Provider: Clinton Ann Other Providers: Serge Byrnes; Sai Serra; Yakelin Padgett; Prashant Stack; Adolph Acosta; Johnny Burciaga; Frank Campbell; Ruben Hinojosa; Evelyn Vee; Adele Madrigal; Isabel Denney; Yakelin Meza; Nik Aviles; Ollie Brandon; Marcie Del Rio; Sydney Varma; Tasha Arevalo; Marylu Robles; Jayden Patel; Alyssa Doran
[2024-03-12 13:58] VITALS: PULSE 54
--- NOTE | 2024-03-12 21:32 | Electrocardiogram Report ---
Test Reason : Blood Pressure : */* mmHG Vent. Rate : 53 BPM Atrial Rate : 53 BPM P-R Int : 164 ms QRS Dur : 90 ms QT Int : 716 ms P-R-T Axes : 54 0 39 degrees QTcB Int : 671 ms Sinus bradycardia Cannot rule out Anterior infarct , age undetermined Prolonged QT Abnormal ECG When compared with ECG of 11-Mar-2024 04:43, QT has lengthened Confirmed by Natanael Joy ([id number]) on 03/12/2024 9:32:17 PM Referred By: REFERRED SELF Confirmed By: Natanael Joy
--- NOTE | 2024-03-12 21:32 | Electrocardiogram Report ---
Test Reason : Blood Pressure : */* mmHG Vent. Rate : 120 BPM Atrial Rate : 120 BPM P-R Int : * ms QRS Dur : 98 ms QT Int : 400 ms P-R-T Axes : * -16 109 degrees QTcB Int : 565 ms Atrial fibrillation with rapid ventricular response Anterior infarct (cited on or before 02-May-2014) Prolonged QT Abnormal ECG When compared with ECG of 10-Mar-2024 13:34, T wave inversion less evident in Lateral leads Confirmed by Natanael Joy ([id number]) on 03/12/2024 9:31:25 PM Referred By: REFERRED SELF Confirmed By: Natanael Joy
--- NOTE | 2024-03-12 21:32 | Electrocardiogram Report ---
Test Reason : Blood Pressure : */* mmHG Vent. Rate : 56 BPM Atrial Rate : 56 BPM P-R Int : 160 ms QRS Dur : 88 ms QT Int : 618 ms P-R-T Axes : 46 -6 26 degrees QTcB Int : 596 ms Sinus bradycardia Prolonged QT Abnormal ECG When compared with ECG of 10-Mar-2024 14:53, Sinus rhythm has replaced Atrial fibrillation Vent. rate has decreased by 64 bpm Criteria for Anterior infarct are no longer Present Confirmed by Natanael Joy ([id number]) on 03/12/2024 9:31:57 PM Referred By: REFERRED SELF Confirmed By: Natanael Joy
== END 2024-03-12 16:19 | disposition home or self-care (01) | DRG 369 ==
LOC: ED 09:51 → SUATTDRO 15:00 → 4W 15:00